=== PATIENT | female | born 1980 | race Caucasian/White ===

== ENCOUNTER 2016-10-02 10:32 | Emergency (ER) | payer MEDICARE, MEDICAID ==
[2016-10-02 11:06] VITALS: BP 138/89
--- NOTE | 2016-10-02 12:09 | UC ---
Throat Pain/Nasal Bishop HPI - HPI Summary HPI Summary: 1 weeks of cold sx - runny nose, nasal congestion, occ productive cough that does not interfere with sleep. 2 days ago pt developed a sore throat. painful to swallow but able to swallow her own spit. no drooling or wheezing. not interfering with eating or drinking. no fever. - History of Current Complaint Chief Complaint: UCGeneralIllness Stated Complaint: THROAT Time Seen by Provider: 10/02/16 11:33 Hx Obtained From: Patient Onset/Duration: Lasting Weeks - 1, Still Present, Worse Since - last 2 days Severity: Moderate Pain Intensity: 4 Cough: Productive - occ yellow sputum Associated Signs & Symptoms: Positive: Dysphagia - pain, Nasal Discharge. Negative: FB Sensation, Drooling, Wheezing, Hoarseness, Sinus Discomfort, Fever , Vomiting, Rash - Allergies/Home Medications Allergies/Adverse Reactions: Allergies Allergy/AdvReac Type Severity Reaction Status Date / Time Haloperidol [From Haldol] Allergy Seizuers Verified 10/02/16 11:00 Phenytoin [From Dilantin] Allergy Rash Verified 10/02/16 11:00 Topiramate [From Topamax] Allergy Rash Verified 10/02/16 11:00 PMH/Surg Hx/FS Hx/Imm Hx - Additional Past Medical History Additional PMH: fibromyalgia, lupus, ra, dm2, anemia Endocrine History Of: Reports: Diabetes - Surgical History Surgical History: Yes Surgery Procedure, Year, and Place: Gastric Sleeve, 2014, [facility]; Bilateral TKA, 2010, [facility]; Bilateral NELLY, 2008, [facility]; , 2001, [facility] - Family History Known Family History: Negative: Cardiac Disease, Hypertension, Diabetes - Social History Occupation: Disabled Lives: Assisted Living Alcohol Use: None Substance Use Type: None Smoking Status (MU): Former Smoker Type: Cigarettes Amount Used/How Often: 1 - 1 1/2 PPD Length of Time of Smoking/Using Tobacco: 15 Years Have You Smoked in the Last Year: No When Did the Patient Quit Smoking/Using Tobacco: 04/06/09 - Immunization History Most Recent Influenza Vaccination: June 2016 Review of Systems Constitutional: Negative - no change from baseline Skin: Negative Eyes: Negative ENT: Sore Throat, Nasal Discharge Respiratory: Cough Cardiovascular: Negative Gastrointestinal: Negative Genitourinary: Negative Motor: Negative - no change from baseline Neurovascular: Negative Musculoskeletal: Negative - no change from baseline Neurological: Negative Psychological: Negative All Other Systems Reviewed And Are Negative: Yes Physical Exam Triage Information Reviewed: Yes Appearance: Well-Appearing, No Pain Distress, Well-Nourished Vital Signs: Initial Vital Signs Temp 98.4 F 10/02/16 10:58 Pulse 72 10/02/16 10:58 Resp 18 10/02/16 10:58 BP 138/89 10/02/16 10:58 Pulse Ox 99 10/02/16 10:58 Vital Signs Reviewed: Yes Eyes: Positive: Conjunctiva Clear. Negative: Discharge ENT: Positive: Hearing grossly normal, Pharynx normal, Nasal congestion, Nasal drainage, TMs normal. Negative: Tonsillar swelling, Tonsillar exudate, Trismus , Muffled/hoarse voice Respiratory: Positive: Lungs clear, Normal breath sounds, No respiratory distress, No accessory muscle use Cardiovascular: Positive: RRR, No Murmur Musculoskeletal Exam: Normal Neurological: Positive: Alert, Muscle Tone Normal Psychological: Positive: Age Appropriate Behavior Skin Exam: Normal Throat Pain/Nasal Course/Dx - Differential Dx/Diagnosis Differential Diagnosis/HQI/PQRI: Pharyngitis, Sinusitis, URI Provider Diagnoses: uri, pharyngitis Discharge - Discharge Plan Condition: Stable Disposition: HOME Patient Education Materials: Upper Respiratory Infection (ED), Pharyngitis (ED) Referrals: Marshall Berrios MD [Primary Care Provider] - If Needed Additional Instructions: TRY USING THE NETTI POT IN THE MORNINGS DISCUSSED. YOU MUST ALWAYS USE CLEAN WATER. REMEMBER, POSTURE IS AN IMPORTANT FACTOR IN SINUS DRAINAGE. MOVE YOUR NECK, BREATHE.
== END 2016-10-02 12:08 | disposition home or self-care (01) ==
LOC: UCCORT 10:32
DX: J06.9 Acute upper respiratory infection, unspecified (principal); Z98.84 Bariatric surgery status; Z87.891 Personal history of nicotine dependence; Z88.0 Allergy status to penicillin
CPT/HCPCS: 99201; G0463

== ENCOUNTER 2017-12-06 11:04 | Emergency (ER) | payer MEDICARE, MEDICAID ==
[2017-12-06 12:04] VITALS: BP 132/70
--- NOTE | 2017-12-06 12:20 | UC ---
UC General HPI - HPI Summary HPI Summary: uti since yesterday am - History of Current Complaint Chief Complaint: UCGU Stated Complaint: URINARY Time Seen by Provider: 12/06/17 12:10 Hx Obtained From: Patient Hx Last Menstrual Period: 12/02/17 Onset/Duration: Gradual Onset Timing: Constant Pain Intensity: 3 Aggravating: nothing Alleviating: nothing Associated Signs & Symptoms: Positive: Abdominal Pain - "bladder cramp/pressure ", Dysuria. Negative: Diarrhea, Fever, Nausea, Vomiting - Allergy/Home Medications Allergies/Adverse Reactions: Allergies Allergy/AdvReac Type Severity Reaction Status Date / Time haloperidol [From Haldol] Allergy See Comment Verified 12/06/17 12:12 phenytoin [From Dilantin] Allergy Rash Verified 12/06/17 12:12 topiramate [From Topamax] Allergy Rash Verified 12/06/17 12:12 Home Medications: Home Medications Alendronate (NF) [Fosamax (NF)] 70 mg PO WEEKLY 12/06/17 [History Confirmed 10/24] Baclofen TAB* [Lioresal TAB*] 10 mg PO TID 12/06/17 [History Confirmed 12/06/17] Calcium Carbonate [Calcium] 500 mg PO BID 12/06/17 [History Confirmed 12/06/17] Citalopram TAB* [CeleXA TAB*] 40 mg PO DAILY 12/06/17 [History Confirmed ] Folic Acid TAB* [Folvite TAB*] 1 mg PO DAILY 12/06/17 [History Confirmed ] Hydroxychloroquine TAB* [Plaquenil TAB*] 200 mg PO DAILY 12/06/17 [History Confirmed 12/06/17] Iron 18 mg PO BID 12/06/17 [History Confirmed 12/06/17] Morphine Sulfate [Ms Contin] 60 mg PO TID 12/06/17 [History Confirmed 12/06/17] Multivit with Calcium,Iron,Min [Multivitamins [id number]] 1 each PO BID 10/24 [History Confirmed 12/06/17] Mycophenolate Mofetil [Cellcept] 500 mg PO BID 12/06/17 [History Confirmed 12/06] Omeprazole CAP* [Prilosec CAP* 20 MG] 20 mg PO DAILY 12/06/17 [History Confirmed 12/06/17] Polyethylene Glycol 3350 [Miralax] 17 gm PO DAILY 12/06/17 [History Confirmed ] Sennosides [Senna Lax] 8.6 mg PO DAILY 12/06/17 [History Confirmed 12/06/17] PMH/Surg Hx/FS Hx/Imm Hx - Additional Past Medical History Additional PMH: RA, Lupus, Fibromyalgia Endocrine History: Diabetes Psychological History: Depression - Surgical History Surgical History: Yes Surgery Procedure, Year, and Place: Gastric Sleeve, 2014, [facility]; Bilateral TKA, 2010, [facility]; Bilateral NELLY, 2008, [facility]; x 2, 2001, [facility] - Family History Known Family History: Negative: Cardiac Disease, Hypertension, Diabetes - Social History Occupation: Disabled Alcohol Use: None Substance Use Type: None Smoking Status (MU): Former Smoker Type: Cigarettes Amount Used/How Often: 1 - 1 1/2 PPD Length of Time of Smoking/Using Tobacco: 15 Years Have You Smoked in the Last Year: No When Did the Patient Quit Smoking/Using Tobacco: 04/06/09 - Immunization History Most Recent Influenza Vaccination: June 2016 Vaccination Up to Date: Yes Review of Systems Constitutional: Negative Skin: Negative Eyes: Negative ENT: Negative Respiratory: Negative Cardiovascular: Negative Gastrointestinal: Negative Genitourinary: Dysuria, Frequency, Urgency Motor: Negative Neurovascular: Negative Musculoskeletal: Negative Neurological: Negative Psychological: Negative All Other Systems Reviewed And Are Negative: Yes Physical Exam Triage Information Reviewed: Yes Appearance: Well-Appearing Vital Signs: Initial Vital Signs Temp 99.5 F 12/06/17 11:51 Pulse 77 12/06/17 11:51 Resp 16 12/06/17 11:51 BP 132/70 12/06/17 11:51 Pulse Ox 98 12/06/17 11:51 Vital Signs Reviewed: Yes Eyes: Positive: Conjunctiva Clear ENT: Positive: Normal ENT inspection Neck exam: Normal Respiratory: Positive: Lungs clear, Normal breath sounds Cardiovascular: Positive: RRR, No Murmur Abdomen Description: Positive: Nontender, No Organomegaly, Soft. Negative: CVA Tenderness (R), CVA Tenderness (L), Distended, Guarding Bowel Sounds: Positive: Present Musculoskeletal: Positive: Other: - Deformities, splints BLE's due to RA/lupus Neurological: Positive: Alert Psychological: Positive: Age Appropriate Behavior Skin Exam: Normal Diagnostics - Laboratory Diagnostic Studies Completed/Ordered: U/A=all +; however, additional hx reveals pt took otc bladder medication thus culture is pending. Course/Dx - Course Course Of Treatment: non toxic, no acute abdomen. hx uti and pt notes this is the same thus will tx presumptively. - Differential Dx - Multi-Symptom Provider Diagnoses: Dysuria. Probable uti Discharge - Sign-Out/Discharge Documenting (check all that apply): Discharge - Discharge Plan Condition: Stable Disposition: HOME Prescriptions: Nitrofurantoin Macrocrystals* [Macrodantin*] 100 mg PO BID 5 Days #10 cap Patient Education Materials: Dysuria (ED) Referrals: Marshall Berrios MD [Primary Care Provider] - 7 Days - Billing Disposition and Condition Condition: STABLE Disposition: HOME
== END 2017-12-06 12:52 | disposition home or self-care (01) ==
LOC: UCCORT 11:04
DX: R30.0 Dysuria (principal); B96.4 Proteus (mirabilis) (morganii) as the cause of diseases classified elsewhere; Z88.8 Allergy status to other drugs, medicaments and biological substances; M06.9 Rheumatoid arthritis, unspecified; F32.9 Major depressive disorder, single episode, unspecified; E11.9 Type 2 diabetes mellitus without complications; Z87.891 Personal history of nicotine dependence
CPT/HCPCS: 81003; 87077; 87086; 87186; 99212; G0463

== ENCOUNTER 2018-08-26 11:48 | Emergency (ER) | payer MEDICARE, MEDICAID ==
[2018-08-26 12:44] VITALS: BP 116/74
--- NOTE | 2018-08-26 12:57 | UC ---
General HPI - HPI Summary HPI Summary: pt found lice in her hair this am. has several home care people so not sure who she got it from. - History of Current Complaint Chief Complaint: AIDANkin Stated Complaint: POSS LICE Time Seen by Provider: 08/26/18 12:34 Hx Obtained From: Patient Hx Last Menstrual Period: 07/30/18 Timing: Constant Pain Intensity: 0 Associated Signs & Symptoms: Negative: Fever - Allergy/Home Medications Allergies/Adverse Reactions: Allergies Allergy/AdvReac Type Severity Reaction Status Date / Time haloperidol [From Haldol] Allergy See Comment Verified 08/26/18 12:35 phenytoin [From Dilantin] Allergy Rash Verified 08/26/18 12:35 topiramate [From Topamax] Allergy Rash Verified 08/26/18 12:35 Home Medications: Home Medications Aspirin 81 mg CHEW TAB* 81 mg PO DAILY 08/26/18 [History Confirmed 08/26/18] Cranberry Conc/C/Bacill Coag [Cranberry Tablet] 1 each PO DAILY 08/26/18 [ History Confirmed 08/26/18] PMH/Surg Hx/FS Hx/Imm Hx - Additional Past Medical History Additional PMH: RA - Surgical History Surgical History: Yes Surgery Procedure, Year, and Place: Gastric Sleeve, 2014, [facility]; Bilateral TKA, 2010, [facility]; Bilateral NELLY, 2008, [facility]; x , 2001, [facility] - Family History Known Family History: Negative: Cardiac Disease, Hypertension, Diabetes - Social History Lives: With Family Alcohol Use: None Substance Use Type: None Smoking Status (MU): Former Smoker Type: Cigarettes Amount Used/How Often: 1 - 1 1/2 PPD Length of Time of Smoking/Using Tobacco: 15 Years Have You Smoked in the Last Year: No When Did the Patient Quit Smoking/Using Tobacco: 04/06/09 - Immunization History Most Recent Influenza Vaccination: June 2016 Vaccination Up to Date: Yes Review of Systems All Other Systems Reviewed And Are Negative: Yes Constitutional: Positive: Negative Skin: Negative: Rash Eyes: Positive: Negative ENT: Positive: Negative Respiratory: Positive: Negative Cardiovascular: Positive: Negative Gastrointestinal: Positive: Negative Genitourinary: Positive: Negative Motor: Positive: Negative Neurovascular: Positive: Negative Musculoskeletal: Positive: Arthralgia - hx RA Neurological: Positive: Negative Psychological: Positive: Negative Physical Exam Triage Information Reviewed: Yes Appearance: Well-Appearing Vital Signs: Initial Vital Signs Temp 99.2 F 08/26/18 12:39 Pulse 78 08/26/18 12:39 Resp 18 08/26/18 12:39 BP 116/74 08/26/18 12:39 Pulse Ox 97 08/26/18 12:39 Vital Signs Reviewed: Yes Eyes: Positive: Conjunctiva Clear ENT: Positive: Normal ENT inspection Neck: Positive: Supple Respiratory: Positive: No respiratory distress Cardiovascular: Positive: RRR Abdomen Description: Positive: Nontender, No Organomegaly, Soft Bowel Sounds: Positive: Present Neurological: Positive: Alert Psychological: Positive: Age Appropriate Behavior Skin Exam: Normal, Other - nits in hair Course/Dx - Diagnoses Provider Diagnosis: Head lice Discharge - Sign-Out/Discharge Documenting (check all that apply): Patient Departure All imaging exams completed and their final reports reviewed: No Studies - Discharge Plan Condition: Stable Disposition: HOME Prescriptions: Permethrin [Nix Creme Rinse] 1 % EX ONCE #1 liq Patient Education Materials: Pediculosis (ED) Referrals: Brittani Cabezas NP [Primary Care Provider] - If Needed - Billing Disposition and Condition Condition: STABLE Disposition: Home
== END 2018-08-26 13:22 | disposition home or self-care (01) ==
LOC: UCCORT 11:48
DX: B85.2 Pediculosis, unspecified (principal); Z87.891 Personal history of nicotine dependence; Z88.8 Allergy status to other drugs, medicaments and biological substances
CPT/HCPCS: 99212; G0463

== ENCOUNTER 2019-05-20 12:49 | Emergency (ER) | payer MEDICARE, MEDICAID ==
--- OUTSIDE RECORDS SUMMARY | 2019-05-20 13:02 | XMS REPORT | Continuity of Care Document ---
:1980 External Reference #:[id number] Author Name Brittani Cabezas PNP-BC, GUDELIA, Ibclc Address [address] [place] [id number] Care Team Providers Name Role Phone Brittani Cabezas PNP-BC, FNP, Ibclc Care Team Information [employer] - Family Problems Active Problems Provider Date Rheumatoid arthritis Brittani Cabezas PNP-BC, FNP, Onset: 09/21/2018 Ibclc Systemic lupus erythematosus Brittani Cabezas PNP-BC, FNP, Onset: 09/21/2018 Ibclc Gastroesophageal reflux disease Brittani Cabezas PNP-BC, FNP, Onset: 09/21/2018 Ibclc Contact dermatitis Brittani Cabezas PNP-BC, FNP, Onset: 09/21/2018 Ibclc Moderate recurrent major depression Brittani Cabezas PNP-BC, FNP, Onset: 2018 Ibclc Social History Type Date Description Comments Sex Unknown Tobacco Use Start: Unknown End: Unknown Quit Tobacco Use Start: Unknown Quit 6 years ago Smoking Status Reviewed: 05/10/19 Quit 6 years ago ETOH Use Denies alcohol use Tobacco Use Start: Unknown End: Unknown Patient is a former smoker Allergies, Adverse Reactions, Alerts Active Allergies Reaction Severity Comments Date Haldol 08/06/2010 Topamax 08/06/2010 Dilantin 08/06/2010 Adhesive 03/30/2018 Medications Active Medications SIG Qnty Indications Ordering Date Provider Fluconazole 1 tab by mouth for 2tabs B37.2 Jocelynn, 200mg Tablets 2 days Uli Peter PNPHENNY, INDUCTION MACHINE SETTER, Ibclc Nystatin apply as directed 30gm B37.2 Jocelynn, 029550Hbeu/GM Cream twice a day for Uli Peter 7-10 days. PNP-BC, INDUCTION MACHINE SETTER, Ibclc Hydroxychloroquine take 1 tablet by 90tabs [facility], Sulfate mouth once daily Uli Peter 200mg Tablets PNP-BC, INDUCTION MACHINE SETTER, Ibclc Senexon take 1 to 2 180tabs [facility], 8.6mg Tablets tablets daily if Uli Peter needed for PNP-BC, INDUCTION MACHINE SETTER, constipation Ibclc Thera-M take 1 tablet by 180tabs [facility], Tablets mouth twice a day Uli Peter PNP-BC, INDUCTION MACHINE SETTER, Ibclc Prozac 1 by mouth every 7caps F32.81 [facility], 20mg Capsules day the week Uli Peter before your period PNP-BC, INDUCTION MACHINE SETTER, Ibclc Constulose take 5 to 15 473units K59.00 [facility], 10GM/15ML Solution milliliters by Uli Peter mouth daily if PNP-BC, INDUCTION MACHINE SETTER, needed for Ibclc constipation Pressure Reducing Roho low profile [facility], Cushion For Electric cushion as Uli Peter Wheelchair directed PNP-BC, INDUCTION MACHINE SETTER, Ibclc Duloxetine HCL 1 by mouth every 90caps F33.1 [facility], 60mg Caps Uli Wilson Part PNP-BC, INDUCTION MACHINE SETTER, Ibclc Fleet Enema 1 now and if no 1596ml [facility], 7-19GM/118ML improvement in 24 Uli Peter Enema hours may repeat PNP-BC, INDUCTION MACHINE SETTER, Ibclc Nystatin apply three times 60gm [facility], 200119Dnzo/GM Powder a day for 7 days Sepideh Peter PNP-BC, INDUCTION MACHINE SETTER, Ibclc Long Handle Medical Assistant Per Diem as needed as 1units Idania Pabon, Mis directed Orestes 8 Briefs Overnight Large pull up briefs for 100units [facility], [facility] during menses as Sepideh Peter directed PNP-BC, INDUCTION MACHINE SETTER, Ibclc Cranberry OTC daily [facility], 200mg Capsules Sepideh Peter PNP-BC, INDUCTION MACHINE SETTER, Ibclc Alendronate Sodium take 1 tablet by 12tabs [facility], 70mg mouth every week Brittani, 0 Tablets PNP-BC, INDUCTION MACHINE SETTER, Ibclc Baclofen take 1 tablet by 90tabs [facility], 20mg Tablets mouth three times Brittani, 0 a day if needed PNP-BC, INDUCTION MACHINE SETTER, Ibclc Folic Acid take 1 tablet by 90tabs [facility], 1mg Tablets mouth once daily Brittani, 0 PNP-BC, INDUCTION MACHINE SETTER, Ibclc Cellcept 3 by mouth twice a 180tabs [facility], 500mg Tablets day Brittani, 0 PNP-BC, INDUCTION MACHINE SETTER, Ibclc Prilosec 1 by mouth every Unknown 20mg Capsules DR day 0 Oscal 500/200 D-3 by mouth twice a 180tabs [facility], day Brittani, 0 [id number] Tablets PNP-BC, INDUCTION MACHINE SETTER, Ibclc Iron 1 tabl by mouth 60tabs [facility], 325(65Fe) mg Tablets bid Brittani, 0 PNP-BC, INDUCTION MACHINE SETTER, Ibclc Aspirin 81 Low Dose 1 by mouth every Unknown 81mg day 0 Chewtabs Oxycodone HCL ER 1 tab by mouth 3 x 90tabs [facility], 30mg Tab ER daily day after Brittani, 0 12H Abuse-Det meals Reference #: PNP-BC, INDUCTION MACHINE SETTER, [id number] Ibclc History Medications Nitrofurantoin Monohyd 1 by mouth 14caps Brittani Cabezas, 05/01/2019 - Macro twice a day PNP-BC, INDUCTION MACHINE SETTER, 05/11/2019 100mg Capsules Ibclc Nitrofurantoin Monohyd 1 by mouth 14caps Brittani Cabezas, 02/20/2019 - Macro twice a day PNP-BC, INDUCTION MACHINE SETTER, 02/27/2019 100mg Capsules Ibclc Duloxetine HCL 1 by mouth 60caps F33.1 Brittani Cabezas, 11/10/2018 - 30mg Caps DR every day for PNP-BC, INDUCTION MACHINE SETTER, 12/04/2018 Part 2 weeks then 2 Ibclc once a day. Medications Administered in Office Medication SIG Qnty Indications Ordering Provider Date Orthovisc 2mL 15mg/mL Vitaly French, DO 02/07/2008 prefilled syringe Injection Orthovisc 2mL 15mg/mL Vitaly French HNacho, DO 01/31/2008 prefilled syringe Injection Orthovisc 2mL 15mg/mL Vitaly French, DO 01/24/2008 prefilled syringe Injection Immunizations CPT Code Status Date Vaccine Lot # 60150 Given 06/09/2018 Influenza Virus Vaccine, Quadrivalent, 36 Mos+, [id number] .[id number] Vital Signs Date Vital Result Comment 05/10/2019 9:08am BP Systolic 120 mmHg BP Diastolic 82 mmHg Body Temperature 97.4 F Heart Rate 92 /min Respiratory Rate 18 /min O2 % BldC Oximetry 97 % 03/28/2019 3:23pm BP Systolic Sitting Left Arm 126 mmHg BP Diastolic Sitting Left Arm 76 mmHg Body Temperature 97.7 F Heart Rate 76 /min Respiratory Rate 18 /min Height 61 inches 5'1" unable Weight 194.00 lb with braces/shoes BMI (Body Mass Index) 36.7 kg/m2 BSA (Body Surface Area) 1.86 m2 [place] body weight in kilograms 48 kg Results Test Date Facility Test Result H/L Range Note Urine Culture 05/01/2019 [facility] Urine ESCHERICHIA COLI Abnormal [address] [place] [address] [phone] Quantity > 100,000 CFU/mL 2 Urine Culture MIXED URETHRAL F <SEE NOTE> 3 Quantity 10,000 - 50,000 <SEE NOTE> 4 Escherichia Coli 05/01/2019 [facility] Nitrofurantoin <=16 Susceptible [address] [place], [place] [id number] [phone] Trimethoprim/Sulfamethoxazole <=20 Susceptible Ampicillin >=32 Resistant Cefazolin 16 Intermediate Ampicillin/Sulbactam >=32 Resistant Ciprofloxacin <=0.25 Susceptible Piperacillin/Tazobactam <=4 Susceptible Ceftazidime <=1 Susceptible Ceftriaxone <=1 Susceptible Cefepime <=1 Susceptible Levofloxacin <=0.12 Susceptible Imipenem <=0.25 Susceptible Gentamicin <=1 Susceptible Tobramycin <=1 Susceptible Urine Dipstick 05/01/2019 [facility] Ua Color yellow Yellow Ua Clarity clear Clear Ua Leuko - Negative Ua Nitrite + Negative Ua Urobilinogen 3.5 High 0.2 - 1.0 E.U./dL Ua Protein - Negative Ua PH 6.0 Low 6.5-7.5 Ua Blood 80 High Negative Ua Specific [place] 1.010 1.010-1.030 Ua Ketones - Negative Ua Bilirubin - Negative Ua Glucose - Negative CBC W/Automated 03/28/2019 [facility] White Blood 6.9 K/uL Normal 3.1-10.[address] [place] [address] [phone] Red Blood Count 3.88 M/uL Low 3.90-5.40 Hemoglobin 11.0 gm/dL Low 11.6-15.8 Hematocrit 34.9 % Low 36.0-46.1 Mean Cell Volume 89.9 fl Normal 80.9-99.0 Mean Corpuscular HGB 28.4 pg Normal 25.9-32.7 Mean Corpuscular HGB Conc 31.5 g/dL Normal 30.8-34.3 Platelet Count 381 K/uL High 155-360 Red Cell Distri Width SD 43.8 fl Normal 36-47 Red Cell Distri Width %CV 13.5 % Normal 11.7-14.4 Mean Platelet Volume 9.7 fl Normal 8.9-12.4 Neut% 56.0 % Normal 40.4-72.8 Lymph % 33.9 % Normal 20.0-42.0 Mccracken % 7.6 % Normal 4.3-13.2 Eo% 1.7 % Normal 0.0-6.6 Bas% 0.4 % Normal 0.0-1.1 Immature Grans 0.4 % Normal 0.0-5.0 NRBC % 0.0 /100WBC < 10/ 100 WBC Neut# 3.87 K/uL Normal 1.8-7.0 Lymph # 2.35 K/uL Normal 1.0-4.0 Mccracken # 0.53 K/uL Normal 0.3-0.9 Eos # 0.12 K/uL Normal 0.0-0.5 Baso # 0.03 K/uL Normal 0.0-0.1 Immature Grans Absolute 0.03 K/uL NRBC # 0.00 K/uL Basic Metabolic Panel 03/28/2019 [facility] Glucose 79 mg/dL Normal 74-[address] [place] [address] [phone] BUN 16 mg/dL Normal 7-18 Creatinine 0.6 mg/dL Normal 0.6-1.3 Glom Filtration Rate, Estimate >60 mL/min >60 If >60 mL/min >60 6 BUN/Creat 26.6 ratio Sodium 138 mmol/L Normal 136-145 Potassium 4.1 mmol/L Normal 3.5-5.1 Chloride 108 mmol/L High 98-107 Carbon Dioxide 22 mmol/L Normal 21-32 Anion Gap 8 mEq/L Normal 8-16 Calcium 8.8 mg/dL Normal 8.5-10.1 Urine Dipstick 02/21/2019 [facility] Ua Color Dark Yellow Yellow Ua Clarity Clear Clear Ua Leuko 500 High Negative Ua Nitrite Negative Negative Ua Urobilinogen 3.5 High 0.2 - 1.0 E.U./dL Ua Protein 0.3 High Negative Ua PH 6.0 Low 6.5-7.5 Ua Blood Negative Negative Ua Specific [place] 1.025 1.010-1.030 Ua Ketones Negative Negative Ua Bilirubin Negative Negative Ua Glucose Negative Negative Urine Culture 02/21/2019 [facility] Urine Culture ESCHERICHIA COLI Abnormal 7 [address] [place] [address] [phone] Quantity > 100,000 CFU/mL 8 Urine Culture URETHRAL CIRILO Quantity > 100,000 CFU/mL 9 Escherichia Coli 02/21/2019 [facility] Nitrofurantoin 32 Susceptible [address] [place] [address] [phone] Trimethoprim/Sulfamethoxazole <=20 Susceptible Ampicillin >=32 Resistant Cefazolin 16 Intermediate Ampicillin/Sulbactam >=32 Resistant Ciprofloxacin <=0.25 Susceptible Piperacillin/Tazobactam 16 Susceptible Ceftazidime <=1 Susceptible Ceftriaxone <=1 Susceptible Cefepime <=1 Susceptible Levofloxacin <=0.12 Susceptible Imipenem <=0.25 Susceptible Gentamicin <=1 Susceptible Tobramycin <=1 Susceptible 1 ESCHERICHIA COLI 2 > 100,000 CFU/mL 3 MIXED URETHRAL CIRILO 4 10,000 - 50,000 CFU/mL 5 Z01.818 6 Note: Persistent reduction for 3 months or more in an eGFR <60 mL/min/1.73 m2 defines CKD. Patients with eGFR values >/=60 mL/min/1.73 m2 may also have CKD if evidence of persistent proteinuria is present. The original MDRD equation for estimated GFR is not valid for patients less than 18 years of age. Additional information may be found at www.kdoqi.org. 7 ESCHERICHIA COLI 8 > 100,000 CFU/mL 9 > 100,000 CFU/mL Procedures Description No Information Available Medical Devices Description No Information Available Encounters Type Date Location Provider Dx Diagnosis Office Visit 05/10/2019 Family Brittani Dodge, B37.2 Candidiasis of skin 9:[address]a [address] PNP-BC, INDUCTION MACHINE SETTER, and nail Ibclc Office Visit 03/28/2019 [facility] Brittani Cabezas, Z01.818 Encounter for other 3:15p [address] PNP-BC, INDUCTION MACHINE SETTER, preprocedural Ibclc examination F32.81 Premenstrual dysphoric disorder M06.9 Rheumatoid arthritis, unspecified M62.49 Contracture of muscle, multiple sites M32.10 Systemic lupus erythematosus, organ or system involv unsp D64.9 Anemia, unspecified N92.0 Excessive and frequent menstruation with regular cycle Office Visit 02/06/2019 1:45p [facility] Brittani Dodge, F32.[address] PNP-BC, INDUCTION MACHINE SETTER, dysphoric disorder Ibclc Z79.891 residential (current) use of opiate analgesic Office Visit 12/22/2018 1:00p [facility] Brittani Dodge, F33.[address] PNP-BC, INDUCTION MACHINE SETTER, disorder, Ibclc recurrent, moderate M06.9 Rheumatoid arthritis, unspecified M62.49 Contracture of muscle, multiple sites K59.00 Constipation, unspecified I10 Essential (primary) hypertension Office Visit 11/10/2018 1:30p [facility] Brittani Dodge, M06.[address] PNP-BC, INDUCTION MACHINE SETTER, arthritis, Ibclc unspecified F33.1 Major depressive disorder, recurrent, moderate M62.49 Contracture of muscle, multiple sites Assessments Date Code Description Provider 05/10/2019 B37.2 Candidiasis of skin and nail Brittani Cabezas PNP-BC, INDUCTION MACHINE SETTER, Ibclc 03/28/2019 Z01.818 Encounter for other preprocedural Brittani Cabezas PNP-BC, INDUCTION MACHINE SETTER, examination Ibclc 03/28/2019 F32.81 Premenstrual dysphoric disorder Brittani Cabezas PNP-BC, INDUCTION MACHINE SETTER , Ibclc 03/28/2019 M06.9 Rheumatoid arthritis, unspecified Brittani Cabezas PNP-BC, INDUCTION MACHINE SETTER, Ibclc 03/28/2019 M62.49 Contracture of muscle, multiple Brittani Cabezas, PNP-BC, INDUCTION MACHINE SETTER , sites Ibclc 03/28/2019 M32.10 Systemic lupus erythematosus, organ Jocelynn, Brittani, PNP-BC , INDUCTION MACHINE SETTER, or system involvement unspecified Ibclc 03/28/2019 D64.9 Anemia, unspecified Jocelynn, Brittani, PNP-BC, INDUCTION MACHINE SETTER, Ibclc 03/28/2019 N92.0 Excessive and frequent menstruation Brittani Cabezas, PNP-BC, INDUCTION MACHINE SETTER, with regular cycle Ibclc 02/06/2019 F32.81 Premenstrual dysphoric disorder Brittani Cabezas, PNP-BC, INDUCTION MACHINE SETTER , Ibclc 02/06/2019 Z79.891 residential (current) use of opiate Brittani Cabezas, PNP-BC, INDUCTION MACHINE SETTER, analgesic Ibclc 12/22/2018 F33.1 Major depressive disorder, Jocelynn, Brittani, PNP-BC, INDUCTION MACHINE SETTER, recurrent, moderate Ibclc 12/22/2018 M06.9 Rheumatoid arthritis, unspecified Brittani Cabezas, PNP-BC, INDUCTION MACHINE SETTER, Ibclc 12/22/2018 M62.49 Contracture of muscle, multiple Jocelynn, Brittani, PNP-BC, INDUCTION MACHINE SETTER , sites Ibclc 12/22/2018 K59.00 Constipation, unspecified Jocelynn, Brittani, PNP-BC, INDUCTION MACHINE SETTER, Ibclc 12/22/2018 I10 Essential (primary) hypertension Brittani Cabezas, PNP-BC, INDUCTION MACHINE SETTER, Ibclc 11/10/2018 M06.9 Rheumatoid arthritis, unspecified Jocelynn, Brittani, PNP-BC, INDUCTION MACHINE SETTER, Ibclc 11/10/2018 F33.1 Major depressive disorder, Jocelynn, Brittani, PNP-BC, INDUCTION MACHINE SETTER, recurrent, moderate Ibclc 11/10/2018 M62.49 Contracture of muscle, multiple Jocelynn, Brittani, PNP-BC, INDUCTION MACHINE SETTER , sites Ibclc Plan of Treatment No Information Available Functional Status Functional Condition Comment Date Status Glasses Active Requires assistance with all ADL's Active Electric wheelchair is used to ambulate Active Brace b/l legs Active Mental Status Description No Information Available Referrals Refer to Reason for Referral Status Appt Date Cherelle Peters MD possible ablation. is w/c bound and also Closed 10/2018 needs a pap but b/c of contractures has to have under anesthesia. [address] [place] [address] [phone]
== END 2019-05-20 13:38 | disposition left against medical advice (07) ==
LOC: UCCORT 12:49
DX: M19.90 Unspecified osteoarthritis, unspecified site (principal); Z53.21 Procedure and treatment not carried out due to patient leaving prior to being seen by health care provider

== ENCOUNTER 2019-08-29 11:46 | Emergency (ER) | payer MEDICARE, MEDICAID ==
--- OUTSIDE RECORDS SUMMARY | 2019-08-29 12:08 | XMS REPORT | Continuity of Care Document ---
:1980 External Reference #:[id number] Author Name Susanna Sepulveda NP (transmitted by agent of provider Janae Hernandez) Address [address] [place] [address] Care Team Providers Name Role Phone Brittani Cabezas, PNP-BC, [employer], Ibclc Care Team Information Associate Professor Of Pathology [phone] Problems Active Problems Provider Date Disorder of tongue Matheus Goodson M.D. Onset: 09/18/2013 Disorder of oral soft tissues Matheus Goodson M.D. Onset: 09/18/2013 Deviated nasal septum Matheus Goodson M.D. Onset: 09/18/2013 Social History Type Date Description Comments Sex Unknown ETOH Use Never used alcohol Recreational Drug Use Has Used In Past Allergies, Adverse Reactions, Alerts Active Allergies Reaction Severity Comments Date Dilantin 07/03/2009 Topamax 07/03/2009 Haldol 07/03/2009 Medications Description No Information Available Immunizations Description No Information Available Vital Signs Date Vital Result Comment 08/08/2019 11:42am Weight 196.00 lb Height 60 inches 5'0" BMI (Body Mass Index) 38.3 kg/m2 BP Systolic 159 mmHg BP Diastolic 112 mmHg Heart Rate 81 /min O2 % BldC Oximetry 99 % Body Temperature 99.0 F Pain Level 0 09/18/2013 1:34pm Weight 280.00 lb Height 59 inches 4'11" BMI (Body Mass Index) 56.5 kg/m2 BP Systolic 118 mmHg BP Diastolic 72 mmHg Heart Rate 82 /min O2 % BldC Oximetry 99 % Body Temperature 99.0 F Results Description No Information Available Procedures Description No Information Available Medical Devices Description No Information Available Encounters Description No Information Available Assessments Description No Information Available Plan of Treatment No Information Available Functional Status Description No Information Available Mental Status Description No Information Available Referrals Description No Information Available
--- OUTSIDE RECORDS SUMMARY | 2019-08-29 12:08 | XMS REPORT | Continuity of Care Document ---
:1980 External Reference #:[id number] Author Name Brittani Cabezas PNP-BC, FNP, Ibclc Address [address] [place] [id number] Care Team Providers Name Role Phone Brittani Cabezas PNP-BC, FNP, Iblance Care Team Information Planogrammer - Family Problems Active Problems Provider Date [...] Quit 6 years ago Smoking Status Reviewed: 07/13/19 Quit 6 years ago ETOH Use Denies alcohol use Tobacco Use Start: Unknown End: Unknown Patient is a former smoker Allergies, Adverse Reactions, Alerts Active Allergies Reaction Severity Comments Date Haldol 08/06/2010 Topamax 08/06/2010 Dilantin 08/06/2010 Adhesive 03/30/2018 Medications Active Medications SIG Qnty Indications Ordering Date Provider Cellcept 1 tablet twice Jocelynn, 500mg Tablets Uli Vivar-BC, FORMING OPERATOR, Ibclc Ferrous Sulfate take 1 tablet by 60tabs Jocelynn, 325(65Fe) mg mouth twice a day Uli Peter Tablets GAVIN, FORMING OPERATOR, Ibclc Fluoxetine HCL take 1 capsule by 30caps F32.81 [facility], 20mg Capsules mouth every day Uli Peter PNP-BC, FORMING OPERATOR, Ibclc Fluconazole 1 tab by mouth for 2tabs B37.2 [facility], 200mg Tablets 2 days Uli Peter PNP-BC, FORMING OPERATOR, Ibclc Nystatin apply as directed 30gm B37.2 [facility], [id number]/GM Cream twice a day for Uli Peter 7-10 days. PNP-BC, FORMING OPERATOR, Ibclc Hydroxychloroquine take 1 tablet by 90tabs [facility], Sulfate mouth once daily Uli Peter 200mg Tablets PNP-BC, FORMING OPERATOR, Ibclc Senexon take 1 to 2 180tabs [facility], 8.6mg Tablets tablets daily if Uli Peter needed for PNP-BC, FORMING OPERATOR, constipation Ibclc Thera-M take 1 tablet by 180tabs [facility], Tablets mouth twice a day Uli Peter PNP-BC, FORMING OPERATOR, Ibclc Constulose take 5-15 ml by 473units K59.00 [facility], 10GM/15ML Solution mouth everyday as Uli Peter needed for PNP-BC, FORMING OPERATOR, constipation Ibclc Pressure Reducing Roho low profile [facility], Cushion For Electric cushion as Uli Peter Wheelchair directed PNP-BC, FORMING OPERATOR, Ibclc Duloxetine HCL 1 by mouth every 90caps F33.1 [facility], 60mg Caps DR aba Peter, Uli Part PNP-BC, FORMING OPERATOR, Ibclc Fleet Enema 1 now and if no 1596ml [facility], 7-19GM/118ML improvement in 24 Uli Peter Enema hours may repeat PNP-BC, FORMING OPERATOR, Ibclc Nystatin apply three times 60gm [facility], [id number]/GM Powder a day for 7 days Sepideh Peter PNP-BC, FORMING OPERATOR, Ibclc Briefs Overnight Large pull up briefs for 100units [facility], Misc during menses as Sepideh Peter directed PNP-BC, FORMING OPERATOR, Ibclc Long Handle Glove Former as needed as 1units Idania Pabon, [facility] josephine [place] 8 Cranberry OTC daily [facility], 200mg Capsules Brittani, 8 PNP-BC, FORMING OPERATOR, Ibclc Alendronate Sodium take 1 tablet by 12tabs [facility], 70mg mouth every week Brittani, 0 Tablets PNP-BC, FORMING OPERATOR, Ibclc Folic Acid take 1 tablet by 90tabs [facility], 1mg Tablets mouth once daily Brittani, 0 PNP-BC, FORMING OPERATOR, Ibclc Oscal 500/200 D-3 by mouth twice a 180tabs [facility], day Brittani, 0 [id number] Tablets PNP-BC, FORMING OPERATOR, Ibclc Aspirin 81 Low Dose 1 by mouth every Unknown 81mg day 0 Chewtabs Oxycodone HCL ER 1 tab by mouth 3 x 90tabs [facility], 30mg Tab ER daily day Brittani, 0 12H Abuse-Det Reference #: PNP-BC, FORMING OPERATOR, [id number] Ibclc Prilosec OTC 1 by mouth every 30tabs [facility], 20mg Tablets DR day Brittani, 0 PNP-BC, FORMING OPERATOR, Ibclc Nitrofurantoin take 1 capsule by 30caps Jocelynn, Monohydrate/Macrocrystal mouth once daily Brittani, 0 s PNP-BC, FORMING OPERATOR, 100mg Capsules Ibclc History Medications Cipro one by mouth 14tabs Brittani Cabezas, 06/21/2019 - 500mg Tablets every 12 hours PNP-BC, FORMING OPERATOR, 06/28/2019 x 7 days Ibclc Levofloxacin 1 by mouth 7tabs Brittani Cabezas, 05/23/2019 - 500mg Tablets every day x 7 PNP-BC, FORMING OPERATOR, 06/21/2019 days Ibclc Nitrofurantoin Monohyd 1 by mouth 14caps Brittani Cabezas, 05/01/2019 - Macro twice a day PNP-BC, FORMING OPERATOR, 05/11/2019 100mg Capsules Ibclc Nitrofurantoin Monohyd 1 by mouth 14caps Brittani Cabezas, 02/20/2019 - Macro twice a day PNP-BC, FORMING OPERATOR, 02/27/2019 100mg Capsules Ibclc Prozac 1 by mouth 7caps F32.81 Brittani Cabezas, 02/06/2019 - 20mg Capsules every day the PNP-BC, FORMING OPERATOR, 05/17/2019 week before Ibclc your period Medications Administered in Office Medication SIG Qnty Indications Ordering Provider Date Orthovisc 2mL 15mg/mL Scaglione, Vitaly H., DO 02/07/2008 prefilled syringe Injection Orthovisc 2mL 15mg/mL Scaglione, Vitaly H., DO 01/31/2008 prefilled syringe Injection Orthovisc 2mL 15mg/mL Scaglione, Vitaly H., DO 01/24/2008 prefilled syringe Injection Immunizations CPT Code Status Date Vaccine Lot # 52890 Given 06/13/2019 Influenza Virus Vaccine, Quadrivalent, 36 Mos+, [id number] .[id number] Given 06/09/2018 Influenza Virus Vaccine, Quadrivalent, 36 Mos+, [id number] .[id number] Vital Signs Date Vital Result Comment 07/13/2019 10:27am BP Systolic 110 mmHg BP Diastolic 70 mmHg Body Temperature 98.7 F Heart Rate 87 /min Respiratory Rate 17 /min O2 % BldC Oximetry 98 % 06/13/2019 2:37pm BP Systolic 120 mmHg BP Diastolic 78 mmHg Body Temperature 97.3 F Heart Rate 82 /min Respiratory Rate 17 /min O2 % BldC Oximetry 97 % Results Test Acquired Facility Test Result H/L Range Note Date Laboratory 07/04/2019 [facility] Urine HCG NEGATIVE Negative 1, 2 test finding [address] ([place] [address] ve) [phone] Urine Culture 06/19/2019 [facility] [address] Urine ESCHERICHIA Abnormal 3 , 4 [address] [place] [address] [phone] Quantity > 100,000 CFU/mL 5 Urine Culture URETHRAL CIRILO Quantity 50,000 - 100,000 <SEE NOTE> 6 Chlam/GC/Trichomonas 06/19/2019 [facility] [address] Ur Trichomonas POSITIVE Negative PCR, Ur [address] vaginalis,[place] [address] [phone] Ur Chlamydia trachomatis,PCR NEGATIVE Negative Ur Neisseria gonorrhoeae,PCR NEGATIVE Negative 7 Escherichia Coli 06/19/2019 [facility] [address] Nitrofurantoin <=[address] [place], [place] [id number] [phone] Trimethoprim/Sulfamethoxazole <=20 Susceptible Ampicillin >=32 Resistant Cefazolin <=4 Susceptible Ampicillin/Sulbactam >=32 Resistant Ciprofloxacin <=0.25 Susceptible Piperacillin/Tazobactam <=4 Susceptible Ceftazidime <=1 Susceptible Ceftriaxone <=1 Susceptible Cefepime <=1 Susceptible Levofloxacin <=0.12 Susceptible Imipenem <=0.25 Susceptible Gentamicin <=1 Susceptible Tobramycin <=1 Susceptible Urine Dipstick 06/19/2019 [facility] Inhouse Ua Color miguel angel Yellow Ua Clarity cloudy Clear Ua Leuko pos Negative Ua Nitrite kenyon Negative Ua Urobilinogen 3.5 High 0.2 - 1.0 E.U./dL Ua Protein pos Negative Ua PH 6.0 Low 6.5-7.5 Ua Blood pos Negative Ua Specific [place] 1.025 1.010-1.030 Ua Ketones neg Negative Ua Bilirubin neg Negative Ua Glucose neg Negative Glycohemoglobin 06/13/2019 [facility] Glycohemoglobin 4.6 % Low 4.8-5.6 8, 9 A1c [address] [facility] (A1c) [place], [place] [id number] [phone] eAG 85 mg/dL . LDL Cholesterol Profile 06/13/2019 [facility] Cholesterol 154 mg/dL <200 10 [address] [place] [address] [phone] Triglycerides 90 mg/dL <150 11 HDL Cholesterol 54 mg/dL >40 12 LDL-Cholesterol 82 mg/dL < 100 13 Comprehensive 06/13/2019 [facility] Glucose 80 mg/dL Normal 74-106 Metabolic Panel [address] [place] [address] [phone] BUN 14 mg/dL Normal 7-18 Creatinine 0.5 mg/dL Low 0.6-1.3 Glom Filtration Rate, Estimate >60 mL/min >60 If >60 mL/min >60 14 BUN/Creat 28.0 ratio Sodium 136 mmol/L Normal 136-145 Potassium 4.3 mmol/L Normal 3.5-5.1 Chloride 107 mmol/L Normal 98-107 Carbon Dioxide 26 mmol/L Normal 21-32 Anion Gap 3 mEq/L Low 8-16 Calcium 8.6 mg/dL Normal 8.5-10.1 Total Protein 7.6 g/dL Normal 6.4-8.2 Albumin 3.3 g/dL Low 3.4-5.0 Globulin 4.3 g/dL Normal 1.9-4.3 Alb/Glob 0.8 ratio Bilirubin,Total 0.3 mg/dL Normal 0.2-1.0 Sgot/Ast 13 U/L Low 15-37 15 SGPT/Alt 14 U/L Normal 12-78 Alkaline Phosphatase 86 U/L Normal 45-117 Vitamin B12 And 06/13/2019 [facility] Vitamin B12 533 pg/mL Normal 193-986 Folate [address] [place], [place] [address] [phone] Folic Acid > 20.0 ng/mL High 3.1-17.5 Iron-Tibc-%Sat 06/13/2019 [facility] Serum Iron 34 g/dL Low 50-170 [address] [place] [address] [phone] Total Iron Binding Capacity 225 g/dL Low 250-450 Transferrin %Saturation 15 % Normal 12-57 Vitamin B12 And 06/13/2019 [facility] Vitamin B12 533 pg/mL Normal 193-986 16 Folate [address] [place] [address] [phone] Folic Acid > 20.0 ng/mL High 3.1-17.5 Iron-Tibc-%Sat 06/13/2019 [facility] Serum Iron 34 g/dL Low 50-170 [address] [place] [address] [phone] Total Iron Binding Capacity 225 g/dL Low 250-450 Transferrin %Saturation 15 % Normal 12-57 Glycohemoglobin 06/13/2019 [facility] Glycohemoglobin 4.6 % Low 4.8-5.6 17 A1c [address] [facility] (A1c) [place], [place] [id number] [phone] eAG 85 mg/dL . LDL Cholesterol Profile 06/13/2019 [facility] Cholesterol 154 mg/dL <200 18 [address] [place], [place] [id number] [phone] Triglycerides 90 mg/dL <150 19 HDL Cholesterol 54 mg/dL >40 20 LDL-Cholesterol 82 mg/dL < 100 21 Protime 06/13/2019 [facility] Protime 13.5 seconds Normal 12.0-14.4 [address] [place] [address] [phone] Inr 1.0 Normal 0.9-1.1 22 Anticoagulant Therapy? NO Comprehensive 06/13/2019 [facility] Glucose 80 mg/dL Normal 74-106 Metabolic Panel [address] [place] [address] [phone] BUN 14 mg/dL Normal 7-18 Creatinine 0.5 mg/dL Low 0.6-1.3 Glom Filtration Rate, Estimate >60 mL/min >60 If >60 mL/min >60 23 BUN/Creat 28.0 ratio Sodium 136 mmol/L Normal 136-145 Potassium 4.3 mmol/L Normal 3.5-5.1 Chloride 107 mmol/L Normal 98-107 Carbon Dioxide 26 mmol/L Normal 21-32 Anion Gap 3 mEq/L Low 8-16 Calcium 8.6 mg/dL Normal 8.5-10.1 Total Protein 7.6 g/dL Normal 6.4-8.2 Albumin 3.3 g/dL Low 3.4-5.0 Globulin 4.3 g/dL Normal 1.9-4.3 Alb/Glob 0.8 ratio Bilirubin,Total 0.3 mg/dL Normal 0.2-1.0 Sgot/Ast 13 U/L Low 15-37 24 SGPT/Alt 14 U/L Normal 12-78 Alkaline Phosphatase 86 U/L Normal 45-117 CBC W/Automated 06/13/2019 [facility] White Blood 7.7 K/uL Normal 3.1-10.7 Diff [address] [place] [address] [phone] Red Blood Count 3.44 M/uL Low 3.90-5.40 Hemoglobin 9.9 gm/dL Low 11.6-15.8 Hematocrit 30.7 % Low 36.0-46.1 Mean Cell Volume 89.2 fl Normal 80.9-99.0 Mean Corpuscular HGB 28.8 pg Normal 25.9-32.7 Mean Corpuscular HGB Conc 32.2 g/dL Normal 30.8-34.3 Platelet Count 372 K/uL High 155-360 Red Cell Distri Width SD 45.9 fl Normal 36-47 Red Cell Distri Width %CV 14.2 % Normal 11.7-14.4 Mean Platelet Volume 9.6 fl Normal 8.9-12.4 Neut% 64.8 % Normal 40.4-72.8 Lymph % 24.7 % Normal 20.0-42.0 [place] % 6.7 % Normal 4.3-13.2 Eo% 2.9 % Normal 0.0-6.6 Bas% 0.4 % Normal 0.0-1.1 Immature Grans 0.5 % Normal 0.0-5.0 NRBC % 0.0 /100WBC < 10/ 100 WBC Neut# 4.96 K/uL Normal 1.8-7.0 Lymph # 1.89 K/uL Normal 1.0-4.0 [place] # 0.51 K/uL Normal 0.3-0.9 Eos # 0.22 K/uL Normal 0.0-0.5 Baso # 0.03 K/uL Normal 0.0-0.1 Immature Grans Absolute 0.04 K/uL NRBC # 0.00 K/uL Anticoagulant Therapy? NO Urine Culture 06/05/2019 [facility] Urine Culture URETHRAL CIRILO [address] [place] [address] [phone] Quantity 50,000 - 100,000 <SEE NOTE> 26 Urine Dipstick 06/05/2019 [facility] Inhouse Ua Color Brown Yellow Ua Clarity cloudy Clear Ua Leuko 1+ High Negative Ua Nitrite negative Negative Ua Urobilinogen 3.5 High 0.2 - 1.0 E.U./dL Ua Protein 1+ High Negative Ua PH 6.0 Low 6.5-7.5 Ua Blood 1+ High Negative Ua Specific [place] 1.030 1.010-1.030 Ua Ketones .5 High Negative Ua Bilirubin negative Negative Ua Glucose 5 High Negative Urine Dipstick 05/23/2019 [facility] Inhouse Ua Color yellow Yellow Ua Clarity clear Clear Ua Leuko 125 High Negative Ua Nitrite positive Negative Ua Urobilinogen 3.5 High 0.2 - 1.0 E.U./dL Ua Protein negative Negative Ua PH 6.0 Low 6.5-7.5 Ua Blood negative Negative Ua Specific [place] 1.010 1.010-1.030 Ua Ketones negative Negative Ua Bilirubin negative Negative Ua Glucose negative Negative Escherichia Coli 05/23/2019 [facility] Nitrofurantoin 32 Susceptible [address] [place] [address] [phone] Trimethoprim/Sulfamethoxazole <=20 Susceptible Ampicillin >=32 Resistant Cefazolin <=4 Susceptible Ampicillin/Sulbactam >=32 Resistant Ciprofloxacin <=0.25 Susceptible Piperacillin/Tazobactam 64 Intermediate Ceftazidime <=1 Susceptible Ceftriaxone <=1 Susceptible Cefepime <=1 Susceptible Levofloxacin <=0.12 Susceptible Imipenem <=0.25 Susceptible Gentamicin <=1 Susceptible Tobramycin <=1 Susceptible Urine Culture 05/23/2019 [facility] Urine ESCHERICHIA COLI Abnormal 27 [address] [facility] [place] [address] [phone] Quantity > 100,000 CFU/mL 28 Urine Culture URETHRAL CIRILO Quantity 10,000 - 100,000 <SEE NOTE> 29 Urine Culture 05/01/2019 [facility] Urine ESCHERICHIA COLI Abnormal 30 [address] [facility] [place] [address] [phone] Quantity > 100,000 CFU/mL 31 Urine Culture MIXED URETHRAL F <SEE NOTE> 32 Quantity 10,000 - 50,000 <SEE NOTE> 33 Escherichia Coli 05/01/2019 [facility] Nitrofurantoin <=16 Susceptible [address] [place] [address] [phone] Trimethoprim/Sulfamethoxazole <=20 Susceptible Ampicillin >=32 Resistant Cefazolin [...] Ua Blood 80 High Negative Ua Specific [place] 1.010 1.010-1.030 Ua Ketones - Negative Ua Bilirubin - Negative Ua Glucose - Negative CBC W/Automated 03/28/2019 [facility] White 6.9 K/uL Normal 3.1-10.7 34 Diff [address] [facility] [place] [place] [address] Count [phone] Red Blood Count 3.88 M/uL Low 3.90-5.40 [...] 40.4-72.8 Lymph % 33.9 % Normal 20.0-42.0 [place] % 7.6 % Normal 4.3-13.2 Eo% 1.7 % Normal 0.0-6.6 Bas% 0.4 % Normal 0.0-1.1 Immature Grans 0.4 % Normal 0.0-5.0 NRBC % 0.0 /100WBC < 10/ 100 WBC Neut# 3.87 K/uL Normal 1.8-7.0 Lymph # 2.35 K/uL Normal 1.0-4.0 [place] # 0.53 K/uL Normal 0.3-0.9 Eos # 0.12 K/uL Normal 0.0-0.5 Baso # 0.03 K/uL Normal 0.0-0.1 Immature Grans Absolute 0.03 K/uL NRBC # 0.00 K/uL Basic Metabolic Panel 03/28/2019 [facility] Glucose 79 mg/dL Normal 74-106 [address] [place] [address] [phone] BUN 16 mg/dL Normal 7-18 Creatinine 0.6 mg/dL Normal 0.6-1.3 Glom Filtration Rate, Estimate >60 mL/min >60 If >60 mL/min >60 35 BUN/Creat 26.6 ratio Sodium 138 mmol/L Normal 136-145 Potassium 4.1 mmol/L Normal 3.5-5.1 Chloride 108 mmol/L High 98-107 Carbon Dioxide 22 mmol/L Normal 21-32 Anion Gap 8 mEq/L Normal 8-16 Calcium 8.8 mg/dL Normal 8.5-10.1 Urine Dipstick 02/21/2019 [facility] Inhouse Ua Color Dark Yellow Yellow Ua Clarity Clear Clear Ua Leuko 500 High Negative Ua Nitrite Negative Negative Ua Urobilinogen 3.5 High 0.2 - 1.0 E.U./dL Ua Protein 0.3 High Negative Ua PH 6.0 Low 6.5-7.5 Ua Blood Negative Negative Ua Specific [place] 1.025 1.010-1.030 Ua Ketones Negative Negative Ua Bilirubin Negative Negative Ua Glucose Negative Negative Urine Culture 02/21/2019 [facility] Urine ESCHERICHIA COLI Abnormal 36 [address] [facility] [place] [address] [phone] Quantity > 100,000 CFU/mL 37 Urine Culture URETHRAL CIRILO Quantity > 100,000 CFU/mL 38 Escherichia Coli 02/21/2019 [facility] Nitrofurantoin 32 Susceptible [address] [place] [address] [phone] Trimethoprim/Sulfamethoxazole <=20 Susceptible Ampicillin >=32 Resistant Cefazolin 16 Intermediate Ampicillin/Sulbactam >=32 Resistant Ciprofloxacin <=0.25 Susceptible Piperacillin/Tazobactam 16 Susceptible Ceftazidime <=1 Susceptible Ceftriaxone <=1 Susceptible Cefepime <=1 Susceptible Levofloxacin <=0.12 Susceptible Imipenem <=0.25 Susceptible Gentamicin <=1 Susceptible Tobramycin <=1 Susceptible 1 WAIVED RESCHEUDLED 2 FIRST MORNING SPECIMENS GENERALLY CONTAIN THE HIGHEST CONCENTRATION OF HCG AND ARE RECOMMENDED FOR EARLY DETECTION OF . Method: Quidel QuickVue One-Step Immunoassay 3 R82.998 R30.0 4 ESCHERICHIA COLI 5 > 100,000 CFU/mL 6 50,000 - 100,000 CFU/mL 7 A negative result for either C. trachomatis and/or N. gonorrhoeae does not preclued an infection because results are dependent on adequate specimen collection, absence of inhibitors, and sufficient DNA to be detected. 8 A.J 9 Prediabetes: 5.7 - 6.4 Diabetes: >6.4 Glycemic control for adults with diabetes: <7.0 Written Authorization Written Authorization Received. Authorization received from PER ORIGINAL 06-16-2019 Logged by Sara Vincent Elevated levels of HbA1c suggest the need for more aggressive treatment of glycemia. The [place] [employer] recommends that a primary goal of therapy should be a HbA1c of <7% and that physicians should re-evaluate the treatment regimen in patients with HbA1c values consistently >8%. 10 Reference Guidelines*: Desirable: ........... < 200 mg/dL Borderline High: ..... 200-239 mg/dL High: ................ >= 240 mg/dL * The National Cholesterol Education Program (NCEP) 11 Reference Guidelines*: Normal: ............. < 150 mg/dL Borderline High: .... 150-199 mg/dL High: ............... 200-499 mg/dL Very High: .......... > 500 mg/dL * Source: National Cholesterol Education Program (NCEP) 12 Reference Guidelines*: Low HDL: ..... < 40 mg/dL Normal: ..... 40-60 mg/dL Desirable: ... > 60 mg/dL *The National Cholesterol Education Program(NCEP) 13 Reference Guidelines*: Optimal:........... <100 mg/dL Near Optimal....... 100-129 mg/dL Borderline High.... 130-159 mg/dL High............... 160-189 mg/dL Very High.......... >=190 mg/dL * Source: National Cholesterol Education Program (NCEP) 14 Note: Persistent reduction for 3 months or more in an eGFR <60 mL/min/1.73 m2 defines CKD. Patients with eGFR values >/=60 mL/min/1.73 m2 may also have CKD if evidence of persistent proteinuria is present. The original MDRD equation for estimated GFR is not valid for patients less than 18 years of age. Additional information may be found at www.kdoqi.org. 15 Values below the stated reference ranges of AST and ALT can be seen in normal populations. Clinical correlation is suggested. 16 Z01.818 Z13.220 Z13.1 D64.9 17 Prediabetes: 5.7 - 6.4 Diabetes: >6.4 Glycemic control for adults with diabetes: <7.0 Elevated levels of HbA1c suggest the need for more aggressive treatment of glycemia. The [place] [employer] recommends that a primary goal of therapy should be a HbA1c of <7% and that physicians should re-evaluate the treatment regimen in patients with HbA1c values consistently >8%. 18 Reference Guidelines*: Desirable: ........... < 200 mg/dL Borderline High: ..... 200-239 mg/dL High: ................ >= 240 mg/dL * The National Cholesterol Education Program (NCEP) 19 Reference Guidelines*: Normal: ............. < 150 mg/dL Borderline High: .... 150-199 mg/dL High: ............... 200-499 mg/dL Very High: .......... > 500 mg/dL * Source: National Cholesterol Education Program (NCEP) 20 Reference Guidelines*: Low HDL: ..... < 40 mg/dL Normal: ..... 40-60 mg/dL Desirable: ... > 60 mg/dL *The National Cholesterol Education Program(NCEP) 21 Reference Guidelines*: Optimal:........... <100 mg/dL Near Optimal....... 100-129 mg/dL Borderline High.... 130-159 mg/dL High............... 160-189 mg/dL Very High.......... >=190 mg/dL * Source: National Cholesterol Education Program (NCEP) 22 THERAPEUTIC INR RANGE: 2.0 - 3.0 DVT, Pulmonary embolus, prophylaxis against venous thrombosis or systemic embolization in high risk patients. 2.5 - 3.5 Mechanical heart valves 23 Note: Persistent reduction for 3 months or more in an eGFR <60 mL/min/1.73 m2 defines CKD. Patients with eGFR values >/=60 mL/min/1.73 m2 may also have CKD if evidence of persistent proteinuria is present. The original MDRD equation for estimated GFR is not valid for patients less than 18 years of age. Additional information may be found at www.kdoqi.org. 24 Values below the stated reference ranges of AST and ALT can be seen in normal populations. Clinical correlation is suggested. 25 R30.0 26 50,000 - 100,000 CFU/mL 27 ESCHERICHIA COLI 28 > 100,000 CFU/mL 29 10,000 - 100,000 CFU/mL 30 ESCHERICHIA COLI 31 > 100,000 CFU/mL 32 MIXED URETHRAL CIRILO 33 10,000 - 50,000 CFU/mL 34 Z01.818 35 Note: Persistent reduction for 3 months or more in an eGFR <60 mL/min/1.73 m2 defines CKD. Patients with eGFR values >/=60 mL/min/1.73 m2 may also have CKD if evidence of persistent proteinuria is present. The original MDRD equation for estimated GFR is not valid for patients less than 18 years of age. Additional information may be found at www.kdoqi.org. 36 ESCHERICHIA COLI 37 > 100,000 CFU/mL 38 > 100,000 CFU/mL Procedures Date Code Description Status 06/13/2019 19385 EKG-Tracing And Report Completed Medical Devices Description No Information Available Encounters Type Date Location Provider Dx Diagnosis Office Visit 07/13/2019 Brittani Beltran, Z00.01 Encounter for 10:00a Paddy SOLARES-BC, FORMING OPERATOR, general adult Ibclc medical exam w abnormal findings M06.9 Rheumatoid arthritis, unspecified M32.10 Systemic lupus erythematosus, organ or system involv unsp Z79.891 long term care administrator (current) use of opiate analgesic F33.1 Major depressive disorder, recurrent, moderate Z87.440 Personal history of urinary (tract) infections H90.0 Conductive hearing loss, bilateral Office Visit 06/13/2019 2:30p Family German Cabezas, Z01.818 Encounter for other Paddy Peter, preprocedural BECK-LILLIE, FORMING OPERATOR, examination Ibclc Z13.220 Encounter for screening for lipoid disorders Z13.1 Encounter for screening for diabetes mellitus D64.9 Anemia, unspecified Z23 Encounter for immunization Office Visit 05/10/2019 9:30a Family German Cabezas B37.2 Candidiasis of skin Paddy Peter, and nail GAVIN, FORMING OPERATOR, Ibclc Office Visit 03/28/2019 3:15p Family German Cabezas, Z01.818 Encounter for other [address] Brittani, preprocedural PNP-BC, FORMING OPERATOR, examination Ibclc F32.81 Premenstrual dysphoric disorder M06.9 Rheumatoid arthritis, unspecified M62.49 Contracture of muscle, multiple sites M32.10 Systemic lupus erythematosus, organ or system involv unsp D64.9 Anemia, unspecified N92.0 Excessive and frequent menstruation with regular cycle Office Visit 02/06/2019 1:45p Family Medicine Brittani Cabezas, F32.[address] PNP-BC, FORMING OPERATOR, dysphoric disorder Ibclc Z79.891 long term care administrator (current) use of opiate analgesic Assessments Date Code Description Provider 07/13/2019 Z00.01 Encounter for general adult medical Brittani Cabezas PNP-BC , FORMING OPERATOR, examination with abnormal findings Ibclc 07/13/2019 M06.9 Rheumatoid arthritis, unspecified Brittani Cabezas, PNP-BC, FORMING OPERATOR, Ibclc 07/13/2019 M32.10 Systemic lupus erythematosus, organ Brittani Cabezas, PNP-BC , FORMING OPERATOR, or system involvement unspecified Ibclc 07/13/2019 Z79.891 long term care administrator (current) use of opiate Brittani Cabezas, PNP-BC, FORMING OPERATOR, analgesic Ibclc 07/13/2019 F33.1 Major depressive disorder, Brittani Cabezas, PNP-BC, FORMING OPERATOR, recurrent, moderate Ibclc 07/13/2019 Z87.440 Personal history of urinary (tract) Brittani Cabezas, PNP-BC , FORMING OPERATOR, infections Ibclc 07/13/2019 H90.0 Conductive hearing loss, bilateral Brittani Cabezas, PNP-BC, FORMING OPERATOR, Ibclc 06/13/2019 Z01.818 Encounter for other preprocedural Brittani Cabezas, PNP-BC, FORMING OPERATOR, examination Ibclc 06/13/2019 Z13.220 Encounter for screening for lipoid Brittani Cabezas PNP-BC , FORMING OPERATOR, disorders Ibcl[facility] 06/13/2019 Z13.1 Encounter for screening for diabetes Brittani Cabezas PNP-BC , FORMING OPERATOR, mellitus [facility] 06/13/2019 D64.9 Anemia, unspecified Brittani Cabezas, PNP-BC, FORMING OPERATOR, Ibclc 06/13/2019 Z23 Encounter for immunization Brittani Cabezas PNP-BC, FNP, [facility] 05/10/2019 B37.2 Candidiasis of skin and nail Brittani Cabezas PNP-BC, FNP, Ibclc 03/28/2019 Z01.818 Encounter for other preprocedural Brittani Cabezas PNP-BC, FNP, examination [facility] 03/28/2019 F32.81 Premenstrual dysphoric disorder Brittani Cabezas PNP-BC, FNP , [facility] 03/28/2019 M06.9 Rheumatoid arthritis, unspecified Brittani Cabezas PNP-BC FORMING OPERATOR, Ibclc 03/28/2019 M62.49 Contracture of muscle, multiple Brittani Cabezas PNP-BC, FNP , sites [facility] 03/28/2019 M32.10 Systemic lupus erythematosus, organ Brittani Cabezas PNP-BC, FNP, or system involvement unspecified [facility] 03/28/2019 D64.9 Anemia, unspecified Brittani Cabezas PNP-BC, FNP, Ibcl[facility] 03/28/2019 N92.0 Excessive and frequent menstruation Brittani Cabezas PNP-BC, FNP, with regular cycle Ibclc 02/06/2019 F32.81 Premenstrual dysphoric disorder Brittani Cabezas PNP-BC, FNP , Ibcl[facility] 02/06/2019 Z79.891 longterm (current) use of opiate Brittani Cabezas PNP-BC, FNP, analgesic Ibclc Plan of Treatment Future Appointment(s):01/11/2020 1:00 pm - Brittani Cabezas PNP-BC, FNP, Ibclc at [facility] RD08/01/2019 10:30 am - Rosalva Sena M.D. at [facility]35/07/2019 - Brittani Cabezas PNP-BC, FNP, WqhhkD23.01 Encounter for general adult medical examination with abnormal findingsComments:Make sure you are getting enough calcium and vit D each dayexercise at least 3 times a week for 20-30 mins.limit high salt and high fat foods.Make sure to use at least SPF 30 when you are out in the sun.call with any unintended changes in weight of more then 10 poundsmammogram's are recommended until least 72Follow up:6 months f/uM06.9 Rheumatoid arthritis, unspecifiedComments:following with ssmappsjumjlQ93.10 Systemic lupus erythematosus, organ or system involvement unspecifiedComments:following with FdjjirfndrjeN40.891 long term care administrator (current) use of opiate virpodvjaN78.1 Major depressive disorder, recurrent, ymkqzipoB28.440 Personal history of urinary (tract) infectionsComments:referral to urology already esjfkzgH94.0 Conductive hearing loss, bilateralReferral:Matheus Goodson MD , OtorhinolaryngologyAllNew Medication:Cellcept 500 mg - 1 tablet twice daiy Functional Status Functional Condition Comment Date Status Glasses Active Requires assistance with all ADL's Active Electric wheelchair is used to ambulate Active Brace b/l legs Active Mental Status Description No Information Available Referrals Refer to Reason for Referral Status Appt Date Matheus Goodson MD Sent 08/08/2019 [address] [place] [address] [phone] Rosalva Sena M.D. recurrent UTI's. pt. is having an uterine Scheduled 08/01/2019 ablation 07/04 so please don't mariela till end of jul. thanks. [address] [place] [address] [phone] Cherelle Peters MD possible ablation. is w/c bound and also Closed 10/2018 needs a pap but b/c of contractures has to have under anesthesia. [address] [facility] [address] [place], [place] [id number] [phone]
--- OUTSIDE RECORDS SUMMARY | 2019-08-29 12:08 | XMS REPORT | Continuity of Care Document ---
:1980 External Reference #:[id number] Author Name Rosalva Sena M.D. Address [address] [address] Care Team Providers Name Role Phone Brittani Cabezas PNP-BC, GUDELIA, Ibclc Care Team Information Digital Content Manager - Family Problems Active Problems Provider Date Rheumatoid arthritis Brittani Cabezas PNP-BC, GUDELIA, Onset: 09/21/2018 Ibclc Systemic lupus erythematosus Brittani Cabezas PNP-BC, GUDELIA, Onset: 09/21/2018 Ibclc Gastroesophageal reflux disease Brittani Cabezas PNP-BC, GUDELIA, Onset: 09/21/2018 Ibclc Contact dermatitis Brittani Cabezas PNP-BC, GUDELIA, Onset: 09/21/2018 Ibclc Moderate recurrent major depression Brittani Cabezas PNP-BC, GUDELIA, Onset: 2018 Ibclc Urinary tract infectious disease Rosalva Sena M.D. Onset: 08/01/2019 Social History Type Date Description Comments Sex Unknown Tobacco Use Start: Unknown End: Unknown Quit Tobacco Use Start: Unknown Quit 6 years ago Smoking Status Reviewed: 07/28/19 Quit 6 years ago ETOH Use Denies alcohol use Tobacco Use Start: Unknown End: Unknown Patient is a former smoker Recreational Drug Use Marijuana Allergies, Adverse Reactions, Alerts Active Allergies Reaction Severity Comments Date Haldol 08/06/2010 Topamax 08/06/2010 Dilantin 08/06/2010 Adhesive 03/30/2018 Medications Active Medications SIG Qnty Indications Ordering Date Provider Sulfamethoxazole/Trimeth 1 by mouth prior 14tabs Nathen oprim DS to intercourse Orestes Blackwell 9 800-160mg Tablets Cellcept 1 tablet twice Jocelynn 500mg Tablets Uli Vivar PNP-BC, ENGINE GENERATOR ASSEMBLER, Ibclc Ferrous Sulfate take 1 tablet by 60tabs [facility], 325(65Fe) mg mouth twice a day Uli Peter Tablets PNP-BC, ENGINE GENERATOR ASSEMBLER, Ibclc Fluoxetine HCL take 1 capsule by 30caps F32.81 [facility], 20mg Capsules mouth every day Uli Peter PNP-BC, ENGINE GENERATOR ASSEMBLER, Ibclc Fluconazole 1 tab by mouth for 2tabs B37.2 [facility], 200mg Tablets 2 days Uli Peter PNP-BC, ENGINE GENERATOR ASSEMBLER, Ibclc Nystatin apply as directed 30gm B37.2 [facility], 278678Trly/GM Cream twice a day for Uli Peter 7-10 days. PNP-BC, ENGINE GENERATOR ASSEMBLER, Ibclc Hydroxychloroquine take 1 tablet by 90tabs [facility], Sulfate mouth once daily Uli Peter 200mg Tablets PNP-BC, ENGINE GENERATOR ASSEMBLER, Ibclc Senexon take 1 to 2 180tabs [facility], 8.6mg Tablets tablets daily if Uli Peter needed for PNP-BC, ENGINE GENERATOR ASSEMBLER, constipation Ibclc Thera-M take 1 tablet by 180tabs [facility], Tablets mouth twice a day Uli Peter PNP-BC, ENGINE GENERATOR ASSEMBLER, Ibclc Constulose take 5-15 ml by 473units K59.00 [facility], 10GM/15ML Solution mouth everyday as Uli Peter needed for PNP-BC, ENGINE GENERATOR ASSEMBLER, constipation Ibclc Pressure Reducing Roho low profile [facility], Cushion For Electric cushion as Uli Peter Wheelchair directed PNP-BC, ENGINE GENERATOR ASSEMBLER, Ibclc Duloxetine HCL 1 by mouth every 90caps F33.1 [facility], 60mg Caps DR Uli Ames Part PNP-BC, ENGINE GENERATOR ASSEMBLER, Ibclc Fleet Enema 1 now and if no 1596ml [facility], 7-19GM/118ML improvement in 24 Uli Peter Enema hours may repeat PNP-BC, ENGINE GENERATOR ASSEMBLER, Ibclc Nystatin apply three times 60gm [facility], 899018Glke/GM Powder a day for 7 days Sepideh Peter PNP-BC, ENGINE GENERATOR ASSEMBLER, Ibclc Briefs Overnight Large pull up briefs for 100units [facility], [facility] during menses as Sepideh Peter directed PNP-BC, ENGINE GENERATOR ASSEMBLER, Ibclc Long Handle Marketing Production Specialist as needed as 1units Ly [place], [facility] directed M.DNacho 8 Cranberry OTC daily [facility], 200mg Capsules Sepideh Peter PNP-BC, ENGINE GENERATOR ASSEMBLER, Ibclc Alendronate Sodium take 1 tablet by 12tabs Jocelynn, 70mg mouth every week Brittani, 0 Tablets PNP-BC, ENGINE GENERATOR ASSEMBLER, Ibclc Folic Acid take 1 tablet by 90tabs Jocelynn, 1mg Tablets mouth once daily Brittani, 0 PNP-BC, ENGINE GENERATOR ASSEMBLER, Ibclc Oscal 500/200 D-3 by mouth twice a 180tabs Jocelynn, day Brittani 0 [id number]-Sonw Tablets PNP-BC, ENGINE GENERATOR ASSEMBLER, Ibclc Aspirin 81 Low Dose 1 by mouth every Unknown 81mg day 0 Chewtabs Oxycodone HCL ER 1 tab by mouth 3 x 90tabs [facility], 30mg Tab ER daily day Brittani, 0 12H Abuse-Det Reference #: PNP-BC, ENGINE GENERATOR ASSEMBLER, [id number] Ibclc Nitrofurantoin take 1 capsule by 30caps [facility], Monohydrate/Macrocrystal mouth once daily Brittani, 0 s PNP-BC, ENGINE GENERATOR ASSEMBLER, 100mg Capsules Ibclc Omeprazole 1 by mouth as Unknown 20mg Capsules DR needed 0 History Medications Cipro one by mouth 14tabs Brittani Cabezas, 06/21/2019 - 500mg Tablets every 12 hours PNP-BC, ENGINE GENERATOR ASSEMBLER, 06/28/2019 x 7 days Ibclc Levofloxacin 1 by mouth 7tabs Brittani Cabezas, 05/23/2019 - 500mg Tablets every day x 7 PNP-BC, ENGINE GENERATOR ASSEMBLER, 06/21/2019 days Ibclc Nitrofurantoin Monohyd 1 by mouth 14caps Brittani Cabezas, 05/01/2019 - Macro twice a day PNP-BC, ENGINE GENERATOR ASSEMBLER, 05/11/2019 100mg Capsules Ibclc Nitrofurantoin Monohyd 1 by mouth 14caps Brittani Cabezas, 02/20/2019 - Macro twice a day PNP-BC, ENGINE GENERATOR ASSEMBLER, 02/27/2019 100mg Capsules Ibclc Prozac 1 by mouth 7caps F32.81 Brittani Cabezas, 02/06/2019 - 20mg Capsules every day the PNP-BC, ENGINE GENERATOR ASSEMBLER, 05/17/2019 week before Ibclc your period Medications Administered in Office Medication SIG Qnty Indications Ordering Provider Date Orthovisc 2mL 15mg/mL Scaglione, Vitaly H., DO 02/07/2008 prefilled syringe Injection Orthovisc 2mL 15mg/mL Scaglione, Vitaly H., DO 01/31/2008 prefilled syringe Injection Orthovisc 2mL 15mg/mL Scaglione, Vitaly H., DO 01/24/2008 prefilled syringe Injection Immunizations CPT Code Status Date Vaccine Lot # 53640 Given 06/13/2019 Influenza Virus Vaccine, Quadrivalent, 36 Mos+, [id number] .[id number] Given 06/09/2018 Influenza Virus Vaccine, Quadrivalent, 36 Mos+, [id number] .[id number] Vital Signs Date Vital Result Comment 08/01/2019 10:42am BP Systolic Sitting Left Arm 154 mmHg BP Diastolic Sitting Left Arm 106 mmHg Body Temperature 98.8 F Heart Rate 84 /min Respiratory Rate 16 /min Height 64 inches 5'4" Weight 196.00 lb PT gave me weight BMI (Body Mass Index) 33.6 kg/m2 BSA (Body Surface Area) 1.94 m2 [place] body weight in kilograms 54 kg O2 % BldC Oximetry 97 % Pain Level 0 07/13/2019 10:27am BP Systolic 110 mmHg BP Diastolic 70 mmHg Body Temperature 98.7 F Heart Rate 87 /min Respiratory Rate 17 /min O2 % BldC Oximetry 98 % Results Test Acquired Date Facility Test Result H/L Range Note Urine Dipstick 08/01/2019 [facility] Ua Color Yellow/brown Yellow Ua Clarity cloudy Clear Ua Leuko 70 High Negative Ua Nitrite Negative Negative Ua Urobilinogen 0.2 0.2 - 1.0 E.U./dL Ua Protein 15 High Negative Ua PH 6.0 Low 6.5-7.5 Ua Blood 200 High Negative Ua Specific Buda 1.025 1.010-1.030 Ua Ketones 5 High Negative Ua Bilirubin 1 High Negative Ua Glucose negative Negative Laboratory 07/04/2019 [facility] Urine HCG NEGATIVE Negative 1, test finding [address] (Qualitative) 2 [place] [address] [phone] Urine 06/19/[address] [facility] [address] Urine Culture ESCHERICHIA Abnormal 3, Culture [address] COLI [address] [place] [address] [phone] Quantity > 100,000 CFU/mL 5 Urine Culture URETHRAL CIRILO Quantity 50,000 - 100,000 <SEE NOTE> 6 Chlam/GC/Trichomonas 06/19/2019 [facility] [address] Ur Trichomonas POSITIVE Negative PCR, Ur [address] vaginalis,[place] [address] [phone] Ur Chlamydia trachomatis,PCR NEGATIVE Negative Ur Neisseria gonorrhoeae,PCR NEGATIVE Negative 7 Escherichia Coli 06/19/2019 [facility] [address] Nitrofurantoin <=[address] [place] [address] [phone] Trimethoprim/Sulfamethoxazole <=20 Susceptible Ampicillin >=32 Resistant Cefazolin [...] 6.5-7.5 Ua Blood pos Negative Ua Specific Buda 1.025 1.010-1.030 Ua Ketones neg Negative Ua Bilirubin neg Negative Ua Glucose neg Negative Glycohemoglobin 06/13/2019 [facility] Glycohemoglobin 4.6 % Low 4.8-5.6 8, [address] (A1c) [place], [place] [id number] [phone] eAG 85 mg/dL . LDL Cholesterol Profile 06/13/2019 [facility] Cholesterol 154 mg/dL <[address] [place] [address] [phone] Triglycerides 90 mg/dL <150 11 HDL Cholesterol 54 mg/dL >40 12 LDL-Cholesterol 82 mg/dL < 100 13 Comprehensive 06/13/2019 [facility] Glucose 80 mg/dL Normal 74-106 Metabolic Panel [address] [place] [address] [phone] BUN 14 mg/dL Normal 7-18 Creatinine 0.5 [...] U/L Normal 45-117 Vitamin B12 And 06/13/2019 [facility] Vitamin B12 533 pg/mL Normal 193-986 Folate [address] [place] [address] [phone] Folic Acid > 20.0 ng/mL High 3.1-17.5 Iron-Tibc-%Sat 06/13/2019 [facility] Serum Iron 34 g/dL Low 50-170 [address] [place], [place] [id number] [phone] Total Iron Binding Capacity 225 g/dL Low 250-450 Transferrin %Saturation 15 % Normal 12-57 Vitamin B12 And 06/13/2019 [facility] Vitamin B12 533 pg/mL Normal 193-986 16 Folate [address] [place] [address] [phone] Folic Acid > 20.0 ng/mL High 3.1-17.5 Iron-Tibc-%Sat 06/13/2019 [facility] Serum Iron 34 g/dL Low 50-170 [address] [place] [address] [phone] Total Iron Binding Capacity 225 g/dL Low 250-450 Transferrin %Saturation 15 % Normal 12-57 Glycohemoglobin 06/13/2019 [facility] Glycohemoglobin 4.6 % Low 4.8-5.6 17 A1c [address] [facility] (A1c) [place] [address] [phone] eAG 85 mg/dL . LDL Cholesterol Profile 06/13/2019 [facility] Cholesterol 154 mg/dL <200 18 [address] [place] [address] [phone] Triglycerides 90 mg/dL <150 19 HDL Cholesterol 54 mg/dL >40 20 LDL-Cholesterol 82 mg/dL < 100 21 Protime 06/13/2019 [facility] Protime 13.5 seconds Normal 12.0-14.4 [address] [place] [address] [phone] Inr 1.0 Normal 0.9-1.1 22 Anticoagulant Therapy? NO Comprehensive 06/13/2019 [facility] Glucose 80 mg/dL Normal 74-106 Metabolic Panel [address] [place] [address] [phone] BUN 14 mg/dL Normal 7-18 Creatinine 0.5 [...] 86 U/L Normal 45-117 CBC W/Automated 06/13/2019 [facility] White Blood 7.7 K/uL Normal 3.1-10.[address] [place] [address] [phone] Red Blood Count 3.44 M/uL Low 3.90-5.40 [...] 40.4-72.8 Lymph % 24.7 % Normal 20.0-42.0 Converse % 6.7 % Normal 4.3-13.2 Eo% 2.9 % Normal 0.0-6.6 Bas% 0.4 % Normal 0.0-1.1 Immature Grans 0.5 % Normal 0.0-5.0 NRBC % 0.0 /100WBC < 10/ 100 WBC Neut# 4.96 K/uL Normal 1.8-7.0 Lymph # 1.89 K/uL Normal 1.0-4.0 Converse # 0.51 K/uL Normal 0.3-0.9 Eos # 0.22 K/uL Normal 0.0-0.5 Baso # 0.03 K/uL Normal 0.0-0.1 Immature Grans Absolute 0.04 K/uL NRBC # 0.00 K/uL Anticoagulant Therapy? NO Urine Culture 06/05/2019 [facility] Urine Culture URETHRAL CIRILO [address] [place] [address] [phone] Quantity 50,000 - 100,000 <SEE NOTE> 26 Urine Dipstick 06/05/2019 [facility] Ua Color Brown Yellow Ua Clarity cloudy Clear Ua Leuko 1+ High Negative Ua Nitrite negative Negative Ua Urobilinogen 3.5 High 0.2 - 1.0 E.U./dL Ua Protein 1+ High Negative Ua PH 6.0 Low 6.5-7.5 Ua Blood 1+ High Negative Ua Specific Buda 1.030 1.010-1.030 Ua Ketones .5 High Negative Ua Bilirubin negative Negative Ua Glucose 5 High Negative Urine Dipstick 05/23/2019 [facility] Ua Color yellow Yellow Ua Clarity clear Clear Ua Leuko 125 High Negative Ua Nitrite positive Negative Ua Urobilinogen 3.5 High 0.2 - 1.0 E.U./dL Ua Protein negative Negative Ua PH 6.0 Low 6.5-7.5 Ua Blood negative Negative Ua Specific Buda 1.010 1.010-1.030 Ua Ketones negative Negative Ua Bilirubin negative Negative Ua Glucose negative Negative Escherichia Coli 05/23/2019 [facility] Nitrofurantoin 32 Susceptible [address] [place], [place] [id number] [phone] Trimethoprim/Sulfamethoxazole <=20 Susceptible Ampicillin >=32 Resistant Cefazolin <=4 Susceptible Ampicillin/Sulbactam >=32 Resistant Ciprofloxacin <=0.25 Susceptible Piperacillin/Tazobactam 64 Intermediate Ceftazidime <=1 Susceptible Ceftriaxone <=1 Susceptible Cefepime <=1 Susceptible Levofloxacin <=0.12 Susceptible Imipenem <=0.25 Susceptible Gentamicin <=1 Susceptible Tobramycin <=1 Susceptible Urine Culture 05/23/2019 [facility] Urine ESCHERICHIA COLI Abnormal 27 [address] [place] [address] [phone] Quantity > 100,000 CFU/mL 28 Urine Culture URETHRAL CIRILO Quantity 10,000 - 100,000 <SEE NOTE> 29 Urine Culture 05/01/2019 [facility] Urine ESCHERICHIA COLI Abnormal [address] [facility] [place] [address] [phone] Quantity > 100,000 CFU/mL 31 Urine Culture MIXED URETHRAL F <SEE NOTE> 32 Quantity 10,000 - 50,000 <SEE NOTE> 33 Escherichia Coli 05/01/2019 [facility] Nitrofurantoin <=16 Susceptible [address] [place], [place] [address] [phone] Trimethoprim/Sulfamethoxazole <=20 Susceptible Ampicillin >=32 Resistant Cefazolin [...] Ua Blood 80 High Negative Ua Specific Buda 1.010 1.010-1.030 Ua Ketones - Negative Ua Bilirubin - Negative Ua Glucose - Negative CBC W/Automated 03/28/2019 [facility] White 6.9 K/uL Normal 3.1-10.7 34 Diff [address] [facility] [place] [address] Count [phone] Red Blood Count 3.88 M/uL Low 3.90-5.40 [...] 40.4-72.8 Lymph % 33.9 % Normal 20.0-42.0 Converse % 7.6 % Normal 4.3-13.2 Eo% 1.7 % Normal 0.0-6.6 Bas% 0.4 % Normal 0.0-1.1 Immature Grans 0.4 % Normal 0.0-5.0 NRBC % 0.0 /100WBC < 10/ 100 WBC Neut# 3.87 K/uL Normal 1.8-7.0 Lymph # 2.35 K/uL Normal 1.0-4.0 Converse # 0.53 K/uL Normal 0.3-0.9 Eos # 0.12 K/uL Normal 0.0-0.5 Baso # 0.03 K/uL Normal 0.0-0.1 Immature Grans Absolute 0.03 K/uL NRBC # 0.00 K/uL Basic Metabolic Panel 03/28/2019 [facility] Glucose 79 mg/dL Normal 74-106 [address] [place] [address] [phone] BUN 16 mg/dL Normal 7-18 Creatinine 0.6 [...] 6.5-7.5 Ua Blood Negative Negative Ua Specific Buda 1.025 1.010-1.030 Ua Ketones Negative Negative Ua Bilirubin Negative Negative Ua Glucose Negative Negative Urine Culture 02/21/2019 [facility] Urine ESCHERICHIA COLI Abnormal [address] [place] [place] [address] [phone] Quantity > 100,000 CFU/mL 37 Urine Culture URETHRAL CIRILO Quantity > 100,000 CFU/mL 38 Escherichia Coli 02/21/2019 [facility] Nitrofurantoin 32 Susceptible [address] [place] [address] [phone] Trimethoprim/Sulfamethoxazole <=20 Susceptible Ampicillin >=32 Resistant Cefazolin [...] for more aggressive treatment of glycemia. The [place] [employer] recommends that a primary goal [...] for more aggressive treatment of glycemia. The [place] [employer] recommends that a primary goal [...] CFU/mL Procedures Date Code Description Status 06/13/2019 96219 EKG-Tracing And Report Completed Medical Devices Description No Information Available Encounters Type Date Location Provider Dx Diagnosis Office Visit 08/01/2019 Urology Rosalva Sena, N39.0 Urinary tract 10:30a M.D. infection, site not specified Office Visit 07/13/2019 Family Medicine Brittani Cabezas, Z00.01 Encounter for 10:[address] PNP-BC, ENGINE GENERATOR ASSEMBLER, general adult Ibclc medical exam w abnormal findings M06.9 Rheumatoid arthritis, unspecified M32.10 Systemic lupus erythematosus, organ or system involv unsp Z79.891 FPC (current) use of opiate analgesic F33.1 Major depressive disorder, recurrent, moderate Z87.440 Personal history of urinary (tract) infections H90.0 Conductive hearing loss, bilateral Office Visit 06/13/2019 2:30p [facility] Medicine Jocelynn, Z01.818 Encounter for other [address] Brittani, preprocedural PNP-BC, ENGINE GENERATOR ASSEMBLER, examination Ibclc Z13.220 Encounter for screening for lipoid disorders Z13.1 Encounter for screening for diabetes mellitus D64.9 Anemia, unspecified Z23 Encounter for immunization Office Visit 05/10/2019 9:30a Family Medicine Jocelynn, B37.2 Candidiasis of skin [address] Brittani, and nail BECK-BC, ENGINE GENERATOR ASSEMBLER, Ibclc Office Visit 03/28/2019 3:15p [facility] German Cabezas, Z01.818 Encounter for other [address] Brittani, preprocedural PNP-BC, ENGINE GENERATOR ASSEMBLER, examination Ibclc F32.81 Premenstrual dysphoric disorder M06.9 Rheumatoid arthritis, unspecified M62.49 Contracture of muscle, multiple sites M32.10 Systemic lupus erythematosus, organ or system involv unsp D64.9 Anemia, unspecified N92.0 Excessive and frequent menstruation with regular cycle Office Visit 02/06/2019 1:45p Family Brittani Dodge, F32.[address] PNP-BC, ENGINE GENERATOR ASSEMBLER, dysphoric disorder Ibclc Z79.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 specified 07/13/2019 Z00.01 Encounter for general adult medical Brittani Cabezas PNP-BC , ENGINE GENERATOR ASSEMBLER, examination with abnormal findings Ibclc 07/13/2019 M06.9 Rheumatoid arthritis, unspecified Brittani Cabezas PNP-BC, ENGINE GENERATOR ASSEMBLER, Ibclc 07/13/2019 M32.10 Systemic lupus erythematosus, organ Jocelynn, Brittani, PNP-BC , ENGINE GENERATOR ASSEMBLER, or system involvement unspecified Ibclc 07/13/2019 Z79.891 FPC (current) use of opiate Brittani Cabezas PNP-BC, ENGINE GENERATOR ASSEMBLER, analgesic Ibclc 07/13/2019 F33.1 Major depressive disorder, Brittani Cabezas, BECK-BC, ENGINE GENERATOR ASSEMBLER, recurrent, moderate Ibclc 07/13/2019 Z87.440 Personal history of urinary (tract) Brittani Cabezas PNP-BC , ENGINE GENERATOR ASSEMBLER, infections Ibclc 07/13/2019 H90.0 Conductive hearing loss, bilateral Brittani Cabezas PNP-BC, ENGINE GENERATOR ASSEMBLER, Ibclc 06/13/2019 Z01.818 Encounter for other preprocedural Brittani Cabezas PNP-BC, ENGINE GENERATOR ASSEMBLER, examination Ibclc 06/13/2019 Z13.220 Encounter for screening for lipoid Brittani Cabezas PNP-BC , ENGINE GENERATOR ASSEMBLER, disorders Ibclc 06/13/2019 Z13.1 Encounter for screening for diabetes Brittani Cabezas PNP-BC , ENGINE GENERATOR ASSEMBLER, mellitus Ibclc 06/13/2019 D64.9 Anemia, unspecified Brittani Cabezas, PNP-BC, ENGINE GENERATOR ASSEMBLER, Ibclc 06/13/2019 Z23 Encounter for immunization Brittani Cabezas PNP-BC, ENGINE GENERATOR ASSEMBLER, Ibclc 05/10/2019 B37.2 Candidiasis of skin and nail Brittani Cabezas PNP-BC, ENGINE GENERATOR ASSEMBLER, Ibclc 03/28/2019 Z01.818 Encounter for other preprocedural Brittani Cabezas PNP-BC, ENGINE GENERATOR ASSEMBLER, examination Ibclc 03/28/2019 F32.81 Premenstrual dysphoric disorder Brittani Cabezas PNP-BC, ENGINE GENERATOR ASSEMBLER , Ibclc 03/28/2019 M06.9 Rheumatoid arthritis, unspecified Brittani Cabezas PNP-BC, ENGINE GENERATOR ASSEMBLER, Ibclc 03/28/2019 M62.49 Contracture of muscle, multiple Brittani Cabezas PNP-BC, ENGINE GENERATOR ASSEMBLER , sites Ibclc 03/28/2019 M32.10 Systemic lupus erythematosus, organ Brittani Cabezas, BECK-BC , ENGINE GENERATOR ASSEMBLER, or system involvement unspecified Ibclc 03/28/2019 D64.9 Anemia, unspecified Brittani Cabezas PNP-BC, ENGINE GENERATOR ASSEMBLER, Ibclc 03/28/2019 N92.0 Excessive and frequent menstruation Brittani Cabezas PNP-BC, GUDELIA, with regular cycle Ibclc 02/06/2019 F32.81 Premenstrual dysphoric disorder Brittani Cabezas PNP-BC, FNP , Ibclc 02/06/2019 Z79.891 FPC (current) use of opiate Brittani Cabezas PNP-BC, GUDELIA, analgesic Ibclc Plan of Treatment Future Appointment(s):09/12/2019 11:15 am - Rosalva Sena M.D. at [facility]2020 1:00 pm - Brittani Cabezas PNP-BC, FNP, Ibclc at [facility]08/01/2019 - Rosalva Sena M.D.N39.0 Urinary tract infection, site not specifiedComments:Patient with recurrent UTIs. We'll do a trial of postcoital Bactrim. We'll obtain a CT scan to assess for any kidney stones or hydronephrosis. Discussed with the patient increasing her fluid intake and frequent voiding every 2-3 hours. She will come and follow with me in a few weeks to reassess the imaging and any recurrence in the UTIs. I will send a urine today for culture. Functional Status Functional Condition Comment Date Status Glasses Active Requires assistance with all ADL's Active Electric wheelchair is used to ambulate Active Brace b/l legs Active Mental Status Description No Information Available Referrals Refer to Reason for Referral Status Appt Date Matheus Goodson MD Sent 08/08/[address] [place] [address] [phone] Rosalva Sena M.D. recurrent UTI's. pt. is having an uterine Scheduled 08/01/2019 ablation 07/04 so please don't mariela till end of jul. thanks. [address], [address] [place], [place] [address] [phone] Cherelle Peters MD possible ablation. is w/c bound and also Closed 10/2018 needs a pap but b/c of contractures has to have under anesthesia. [address] [facility] [address] [place], [place] [address] [phone]
--- OUTSIDE RECORDS SUMMARY | 2019-08-29 12:08 | XMS REPORT | Continuity of Care Document ---
:1980 External Reference #:[id number] Author Name Susanna Sepulveda NP Address [address] [place] [address] Care Team Providers Name Role Phone Brittain Cabezas, PNP-BC, SPOTLIGHT OPERATOR, Ibclc Care Team Information Road Commissioner [phone] Problems Active Problems Provider Date Disorder of tongue Matheus Goodson M.D. Onset: 09/18/2013 Disorder of oral soft tissues Matheus Goodson M.D. Onset: 09/18/2013 Deviated nasal septum Matheus Goodson M.D. Onset: 09/18/2013 Social History Type Date Description Comments Sex Unknown Tobacco Use Start: Unknown Never Smoked Cigarettes ETOH Use Rare Use Of Alcohol Recreational Drug Use Current Drug User Allergies, Adverse Reactions, Alerts Active Allergies Reaction Severity Comments Date Dilantin 07/03/2009 Topamax 07/03/2009 Haldol 07/03/2009 Medications Active Medications SIG Qnty Indications Ordering Provider Date Fluticasone 2 sprays each 29.7ml Z01.10 Matheus Goodson, 08/08/2019 Propionate nostril every day M.D. 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
--- OUTSIDE RECORDS SUMMARY | 2019-08-29 12:08 | XMS REPORT | Continuity of Care Document ---
:1980 External Reference #:[id number] Author Name Susanna Sepulveda NP Address [address] [place] [address] Care Team Providers Name Role Phone Brittani Cabezas, PNP-BC, MUSIC DIRECTOR, [employer] Care Team Information Tunnel Drier Operator [phone] Problems Active Problems Provider Date Disorder of [...] Available Procedures Date Code Description Status 08/08/2019 38329 Tympanometry Completed 08/08/2019 43646 Audiometry, Comprehensive Completed Medical Devices Description No Information Available Encounters Type Date Location Provider Dx Diagnosis Office Visit 08/08/2019 Main Office Susanna Sepulveda, Z01.10 Encounter 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
[2019-08-29 12:14] VITALS: BP 141/109
--- NOTE | 2019-08-29 12:32 | UC ---
Throat Pain/Nasal Bishop HPI - HPI Summary HPI Summary: complaints of sore throat, nasal congestion since Wednesday night. her son just treated for strep - History of Current Complaint Chief Complaint: UCGeneralIllness Stated Complaint: SORE THROAT EARS CONGESTION Time Seen by Provider: 08/29/19 12:09 Hx Obtained From: Patient Hx Last Menstrual Period: 07/30/18 ?: No Onset/Duration: Sudden Onset, Lasting Days Severity: Moderate Pain Intensity: 5 Associated Signs & Symptoms: Positive: Dysphagia, Nasal Discharge - Allergies/Home Medications Allergies/Adverse Reactions: Allergies Allergy/AdvReac Type Severity Reaction Status Date / Time haloperidol [From Haldol] Allergy See Comment Verified 08/29/19 12:14 phenytoin [From Dilantin] Allergy Rash Verified 08/29/19 12:14 topiramate [From Topamax] Allergy Rash Verified 08/29/19 12:14 Home Medications: Home Medications DULoxetine DR CAP* [Cymbalta CAP*] 60 mg PO ONCE 08/29/19 [History Confirmed ] FLUoxetine CAP* [PROzac CAP*] 20 mg PO DAILY 08/29/19 [History Confirmed ] Lactulose* 15 ml PO DAILY 08/29/19 [History Confirmed 08/29/19] Sulfamethox/Trimethoprim DS* [Bactrim DS 800/160 TAB*] 1 tab PO DAILY 08/29/19 [ History Confirmed 08/29/19] oxyCODONE SR TAB(*) [Oxycontin(*)] 30 mg PO TID 08/29/19 [History Confirmed ] PMH/Surg Hx/FS Hx/Imm Hx Previously Healthy: Yes - Surgical History Surgical History: Yes Surgery Procedure, Year, and Place: Gastric Sleeve, 2014, [facility]; Bilateral TKA, 2010, [facility]; Bilateral NELLY, 2008, [facility]; x , 2001, [facility] - Family History Known Family History: Negative: Cardiac Disease, Hypertension, Diabetes - Social History Alcohol Use: None Substance Use Type: None Smoking Status (MU): Former Smoker Type: Cigarettes Amount Used/How Often: 1 - 1 1/2 PPD Length of Time of Smoking/Using Tobacco: 15 Years Have You Smoked in the Last Year: No When Did the Patient Quit Smoking/Using Tobacco: 04/06/09 - Immunization History Most Recent Influenza Vaccination: June 2016 Vaccination Up to Date: Yes Review of Systems All Other Systems Reviewed And Are Negative: Yes ENT: Positive: Sore Throat, Ear Ache, Nasal Discharge, Sinus Congestion Respiratory: Positive: Cough Is Patient Immunocompromised?: No Physical Exam Triage Information Reviewed: Yes Appearance: Well-Appearing, Well-Nourished, Pain Distress Vital Signs: Initial Vital Signs Temp 98.8 F 08/29/19 12:12 Pulse 99 08/29/19 12:12 Resp 16 08/29/19 12:12 BP 141/109 08/29/19 12:12 Pulse Ox 100 08/29/19 12:12 Vital Signs Reviewed: Yes Eye Exam: Normal ENT: Positive: Nasal congestion, Tonsillar swelling, Tonsillar exudate, Other - left external otic canal is full of white exudate Dental Exam: Normal Neck exam: Normal Respiratory Exam: Normal Cardiovascular Exam: Normal Abdominal Exam: Normal Bowel Sounds: Positive: Present Musculoskeletal Exam: Normal Neurological Exam: Normal Psychological Exam: Normal Skin Exam: Normal Throat Pain/Nasal Course/Dx - Course Course Of Treatment: hx obtained, exam performed, meds reviewed, treated for strep, ear irragation performed and treated for otitis externa left ear. Repeat BP performed, advised to follow up with PCP about BP. - Differential Dx/Diagnosis Differential Diagnosis/HQI/PQRI: Laryngitis, Otitis Media, Pharyngitis, Sinusitis, URI Provider Diagnosis: Pharyngitis, Otitis externa Discharge ED - Sign-Out/Discharge Documenting (check all that apply): Patient Departure All imaging exams completed and their final reports reviewed: No Studies - Discharge Plan Condition: Stable Disposition: HOME Prescriptions: Amoxicillin PO (*) [Amoxicillin 500 MG CAP*] 500 mg PO Q12H #20 cap Ciproflox/Dexameth OTIC.SUSP* [Ciprodex OTIC.SUSP*] 4 drop .SEE ORDER BID #1 [id number] Patient Education Materials: Otitis Externa (ED), Pharyngitis (ED) Referrals: Brittani Cabezas NP [Primary Care Provider] - Additional Instructions: 1. take the medication as prescribed. 2. Get plenty of rest 3. Follow up with your PCP about your blood pressure if it continues to be eleveated. - Billing Disposition and Condition Condition: STABLE Disposition: Home
== END 2019-08-29 12:57 | disposition home or self-care (01) ==
LOC: UCCORT 11:46
DX: J02.9 Acute pharyngitis, unspecified (principal); H60.92 Unspecified otitis externa, left ear; R05 Cough; Z88.8 Allergy status to other drugs, medicaments and biological substances; Z87.891 Personal history of nicotine dependence
CPT/HCPCS: 69210; 99212; 99213; G0463